=== PATIENT | male | born 1940 | race Caucasian/White ===

== ENCOUNTER 2024-08-28 20:08 | Emergency (ER) | payer MEDICARE, SELFPAY ==
--- NOTE | ~2024-08-28 | CT_ITS ---
EXAMINATION: CT ANGIOGRAM CHEST CLINICAL INFORMATION: Tachycardia. Elevated d-dimer. Near-syncope. COMPARISON: None available. TECHNIQUE: Multiple axial images were obtained through the chest after the administration of 65 mL of Omnipaque 350 intravenous contrast. Extensive vascular post-processing including two-dimensional and three-dimensional reformatted images were created and reviewed on an independent workstation. This CT examination was performed using dose optimization techniques as appropriate, variously including the following: *Automated exposure control *Adjustment of mA and/or kV according to patient size (this includes techniques or standardized protocols for targeted exams where dose is matched to indication/reason for exam; i.e. extremities or head) *Use of iterative reconstruction technique DLP: 448 mGy-cm FINDINGS: QUALITY OF STUDY/CONTRAST BOLUS: Satisfactory. PULMONARY ARTERIES: No pulmonary emboli. THORACIC AORTA: There is atherosclerotic plaque of the thoracic aorta. LUNG: The lungs are clear. PLEURA: Unremarkable. CORONARY ARTERY CALCIFICATION: Moderate. MEDIASTINUM: The heart is normal in size. No pericardial effusion. No hilar or mediastinal lymphadenopathy. No evidence of septal bowing or right heart strain. CHEST WALL/AXILLA: No axillary or internal mammary lymphadenopathy. OSSEOUS STRUCTURES: There is mild to moderate diffuse thoracic degenerative change. UPPER ABDOMEN: The liver is of diminished attenuation. No reflux of contrast into the hepatic veins to suggest elevated right heart pressures. CT/CT angio chest PE protocol IMPRESSION: No acute abnormality. No evidence of pulmonary embolism. Fleischner guidelines were followed. Electronically signed by: Aba Mckee MD 08/29/2024 02:13 AM EDT
[2024-08-28 20:13] VITALS: BP 145/65; PULSE 117; RESP 20; TEMP 36.8; O2SAT 96; BMI 32.9
--- NOTE | 2024-08-28 20:21 | ECG_ITS ---
Test Reason : SYNCOPY Blood Pressure : / mmHG Vent. Rate : 113 BPM Atrial Rate : 113 BPM P-R Int : 166 ms QRS Dur : 088 ms QT Int : 330 ms P-R-T Axes : 002 -01 010 degrees QTc Int : 453 ms Sinus tachycardia Low voltage QRS Nonspecific ST and T wave abnormality Abnormal ECG No previous ECGs available Referred By: Generic ED Physician Electronically Signed By:CIERRA SCHWARZ
--- NOTE | 2024-08-28 20:25 | PC.NURSE ---
POC = [id number]
[2024-08-28 20:27] LABS: Glucose, Whole Blood 258 mg/dL (60-115)
[2024-08-28 20:39] VITALS: BP 124/65; PULSE 114; RESP 30; O2SAT 95
--- NOTE | 2024-08-28 20:41 | PC.NURSE ---
Arrives with 20G to L[facility] per EMS. Flushes well. Good blood return.
--- NOTE | 2024-08-28 20:41 | PC.NURSE ---
Labs and Covid/flu/RSV swab sent.
--- NOTE | 2024-08-28 20:42 | PC.NURSE ---
Pt. is on surveillance monitor at this time.
[2024-08-28 20:43] LABS: MANUAL DIFF FLAG NO
[2024-08-28 20:47] LABS: Basophils Percent Auto 0.2 % (0-2); Hematocrit 37.5 % (42.0-52.0); Hemoglobin 13.7 g/dl (14.0-18.0); Imm Gran Abs Auto 0.04 X10*3/uL (0.00-0.03); Imm Gran Pct Auto 0.4 % (0.0-0.4); Lymphocytes Absolute Auto 0.9 X10*3/uL (1.2-4.9); Mean Corpuscular HGB Conc 36.5 g/dl (31.0-36.0); Mean Corpuscular Hemoglobin 33.9 pg (27.0-33.0); Mean Corpuscular Volume 92.8 fL (80.0-98.0); Mean Platelet Volume 9.2 fL (9.4-12.4); Monocytes Absolute Auto 0.5 X10*3/uL (0.1-1.2); Monocytes Percent Auto 4.9 % (2-11); Neutrophils Absolute Auto 9.5 x10*3/uL (2.0-8.3); Neutrophils Percent Auto 86.5 % (45-73); Platelet Count 116 X10*3/uL (160-400); Red Blood Count 4.04 X10*6/uL (4.60-5.80); Red Cell Distribution Width 12.8 % (11.0-16.0)
--- NOTE | 2024-08-28 20:48 | MHC.EDTECH ---
DAUGHTER GOLDIE MELO LEFT # FOR UPDATE -- [phone]. SHE ALSO LEFT GRAND DAUGHTERS NUMBER WHO IS LOCAL IF HE NEEDS ANYTHING -- ERIC [phone]
[2024-08-28 20:58] LABS: Anion Gap 16 (12-20); Blood Urea Nitrogen 20 mg/dL (9-16); Calcium 9.8 mg/dL (8.4-10.2); Carbon Dioxide 25 mmol/L (22-29); Chloride 102 mmol/L (96-108); Creatinine Clr Calc Pharmacy 44.5; Estimated Glomerular Filt Rate 52; Glucose Random 272 mg/dL (60-115); Potassium 3.9 mmol/L (3.3-5.1); Sodium 139 mmol/L (135-145)
[2024-08-28 21:06] LABS: Troponin-I High Sensitivity 8.9 ng/L (<3.5-35.0)
[2024-08-28 21:20] LABS: Influenza A PCR NEGATIVE (Negative); Influenza B PCR NEGATIVE (Negative); Resp Syncy Virus RNA Qual PCR NEGATIVE (Negative); SARS COV2 PCR INHOUSE NEGATIVE (Negative)
--- NOTE | 2024-08-28 21:41 | ED.GENADULT ---
HPI - General Adult General Chief complaint: Dizziness Stated complaint: slip and fall w/ no loc , sugar of 385 Time Seen by Provider: 08/28/24 21:25 Source: patient and EMS Mode of arrival: EMS Limitations: no limitations History of Present Illness ED Provider: Dr. Luz Maria Huntley HPI narrative: Patient comes to the emergency room complaining a mechanical incident where he did not fall, was able to slide out. According to the patient, today he was treated in closed, states that his under friends got tangled around his lower extremities. Patient states that he was able to slowly lower himself to the ground. Patient states that he did not hit his head did not lose consciousness, did not land hard on the floor at all. Patient states that over the last 3 days he has noticed that he has mean feeling a bit different, almost like the flu. Denies chest pain or shortness of breath. Patient states that after he lowers his to the ground, he was unable to get up. Patient's who lives with him has history of dementia and is not strong enough to help him up therefore the ambulance was called. Patient states that at this time he feels well. Patient states that he does not know if he is strong enough to get up and walk. Related Data Allergies Allergy/AdvReac Type Severity Reaction Status Date / Time No Known Allergies Allergy Verified 08/28/24 20:15 Review of Systems Review of Systems: Constitutional : No Weight loss, No Fever, No Chills, No Night Sweats, complaining of fatigue and generalized malaise ENT/Mouth : No Hearing loss, No Ear Pain, No Nasal Congestion, No Sinus Pain, No Hoarseness, No sore throat, No Rhinorrhea, No Swallowing Difficulty Eyes: No Eye Pain, No Swelling, No Redness, No Foreign Body, No Discharge, No Vision Changes Cardiovascular : No Chest Pain, No SOB, No Dyspnea on Exertion, No Orthopnea, No Edema, No Palpitations Respiratory : No Cough, No Sputum, No Wheezing, No Smoke Exposure, No Dyspnea Gastrointestinal : No Nausea, No Vomiting, No Diarrhea, No Constipation, No abdominal Pain, No Hematochezia, No Melena Genitourinary : no irregular bleeding, No Dysuria, No Urinary Frequency, No Hematuria, No Urinary Incontinence, No Urgency, No Flank Pain, No Urinary Flow Changes, No Hesitancy Musculoskeletal : No joint pain, No Myalgias, No Joint Swelling Skin : No Skin Lesions, No rash Neuro : No Weakness, No Numbness, No Paresthesias, No Loss of Consciousness, No Dizziness, No Headache Psych : No Anxiety/Panic, No Depression, No SI/HI/AH/VH, No Social Issues, Heme/Lymph: No Bruising, No Bleeding,No Lymphadenopathy Endocrine : No Polyuria, No Polydipsia, No Temperature Intolerance [facility] Past Medical History Medical History (Updated 08/29/24 @ 03:40 by Luz Maria Huntley MD) Lower extremity edema Hyperlipidemia STEMI (ST elevation myocardial infarction) Social History Social History Smoked in Last 30 Days: No Use of substances other than those prescribed or required for medical reasons: No Advance Directives: No Advance Directives Information Provided: No Do you have a plan to hurt others: No Plan Physical Exam ED Vital Signs: Vital Signs - 24 hr 08/28/24 20:13 08/28/24 20:39 08/28/24 22:01 Temperature 98.2 F Pulse Rate 117 H 114 H 107 H Respiratory Rate 20 30 H Blood Pressure 145/65 H 124/65 132/54 L Pulse Oximetry 96 95 Oxygen Delivery Method Room Air Room Air 08/28/24 22:01 08/28/24 22:01 08/28/24 23:54 Temperature 98.0 F Pulse Rate 119 H 131 H 115 H Respiratory Rate 17 Blood Pressure 126/61 130/57 L 130/70 Pulse Oximetry 95 Oxygen Delivery Method Room Air BMI result Body Mass Index 32.9 Const Other: Appearance: Alert. Oriented X3. No acute distress. Eyes: Pupils equal, round and reactive to light. ENT: Pharynx normal. Neck: Normal inspection. Neck supple. No lymph nodes noted. No crepitus CVS: Normal heart rate and rhythm. Pulses normal. Normal S1 and S2 Respiratory: No respiratory distress. Breath sounds normal. No Wheezing. No rales Abdomen: Soft and nontender. No rigidity. No distention. Skin: Skin warm and dry. Normal skin color. Normal skin turgor. Extremities: Edema is significantly more swollen than the right, warm and tender to touch. Neuro: Oriented X 3. No motor deficit. No sensory deficit. Moving all extremities. No slurred speech. CN 2 through 12 grossly intact Psych: calm, cooperative, normal affect Course Course Course Narrative: All of patient's labs and imaging pending -I discussed the patient's right lower extremity on physical exam. Patient states that for months he has had lower extremity redness pain and edema. 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 Patient states that the appearance of his leg today is actually better then some days ago. Patient is not taking any antibiotics. Patient states that he had an ultrasound done a [facility] which showed no DVT Medical Decision Making Medical Decision Making [facility] Narrative: My interpretation of labs: No alarming abnormality in patient's hematology, platelets are a bit low, 116. No significant electrolytes, glucose 272. Troponin normal. Serology negative for influenza RSV and COVID. -my interpretation of EKG: Sinus tachycardia, heart rate 113, no ST segment depression or elevation, no T-wave inversion, QTC 647 -patient's QTC seems inaccurately elevated. We will repeat EKG -my interpretation of EKG 2.: Sinus rhythm, heart rate 109, no ST segment depression or elevation, no T-wave inversion, QTC 401 -orthostatic vitals negative -patient's heart rate between 113 in 130 at rest. Patient's D-dimer pending. Discussed with the patient that if positive we will do a CTA to rule out PE, patient agrees with plan -CT scan negative for PE -urinalysis negative for UTI -patient was able to ambulate with a any difficulty. Denies feeling dizzy or lightheaded, no room spinning. Patient states that he feels well enough to go home Differential Diagnosis Differential Diagnoses: The differential diagnosis associated with the presentation includes (Mechanical fall, viral syndrome, UTI, decompensation) Admission/Observation Consideration of admission/observation: Escalation of care including admission/observation considered (Medical history, labs and symptoms, observation was considered.) Lab Data [facility] Lab Attestation statement: I reviewed the patient's lab results. 08/28/24 20:36 08/28/24 20:36 Labs: Lab Results 08/28/24 08/28/24 08/28/24 Range/Units 20:24 20:36 23:01 WBC 11.0 H (4.8-10.8) X10*3/uL RBC 4.04 L (4.60-5.80) X10*6/uL Hgb 13.7 L (14.0-18.0) g/dl Hct 37.5 L (42.0-52.0) % MCV 92.8 (80.0-98.0) fL MCH 33.9 H (27.0-33.0) pg MCHC 36.5 H (31.0-36.0) g/dl RDW 12.8 (11.0-16.0) % Plt Count 116 L (160-400) X10*3/uL MPV 9.2 L (9.4-12.4) fL Immature Gran % (Auto) 0.4 (0.0-0.4) % Neut % (Auto) 86.5 H (45-73) % Lymph % (Auto) 8.0 L (20-40) % Graves % (Auto) 4.9 (2-11) % Eos % (Auto) 0.0 (0-4) % Baso % (Auto) 0.2 (0-2) % Lymph # (Auto) 0.9 L (1.2-4.9) X10*3/uL Graves # (Auto) 0.5 (0.1-1.2) X10*3/uL Eos # (Auto) 0.0 (0.0-0.4) X10*3/uL Baso # (Auto) 0.0 (0.0-0.2) X10*3/uL Abs Immat Gran (auto) 0.04 H (0.00-0.03) X10*3/uL Absolute Neuts (auto) 9.5 H (2.0-8.3) x10*3/uL Absolute Nucleated RBC 0.000 (0.0-0.012) X10*3/uL Nucleated RBC % (auto) 0.0 (0.0-0.2) /100WBC PT 14.2 H (10.9-12.4) SEC INR 1.2 H (0.9-1.1) D-Dimer High Sensitivty 467 NG/ML Sodium 139 (135-145) mmol/L Potassium 3.9 (3.3-5.1) mmol/L Chloride 102 (96-108) mmol/L Carbon Dioxide 25 (22-29) mmol/L Anion Gap 16 (12-20) BUN 20 H (9-16) mg/dL Creatinine 1.31 (0.5-1.4) mg/dL Estim Creat Clear Calc 44.5 Estimated GFR 52 POC Glucose 258 H (60-115) mg/dL Random Glucose 272 H (60-115) mg/dL Calcium 9.8 (8.4-10.2) mg/dL Troponin I High Sens 8.9 (<3.5-35.0) ng/L Urine Color Urine Appearance Urine pH (5.0-9.0) Ur Specific Maria Stein (1.005-1.025) Urine Protein (Neg-Trace) mg/dL Urine Glucose (UA) (Negative) mg/dL Urine Ketones (Negative) mg/dL Urine Blood (Negative) Urine Nitrite (Negative) Ur Leukocyte Esterase (Negative) Urine RBC (0-2) /HPF Urine WBC (0-5) /HPF Ur Squamous Epith Cells (0-2) /HPF Urine Bacteria (None Seen) Hyaline Casts (0-2) /LPF Urine Opiates Screen (Not Detect) Ur Buprenorphine Scrn (Not Detect) ng/mL Ur Oxycodone Screen (Not Detect) ng/mL Urine Methadone Screen (Not Detect) ng/mL Urine Fentanyl Screen (Not Detect) Ur Barbiturates Screen (Not Detect) Ur Phencyclidine Scrn (Not Detect) Ur Amphetamines Screen (Not Detect) U Benzodiazepines Scrn (Not Detect) Urine Cocaine Screen (Not Detect) U Marijuana (THC) Screen (Not Detect) Influenza Type A (PCR) NEGATIVE (Negative) Influenza Type B (PCR) NEGATIVE (Negative) RSV RNA Qual (PCR) NEGATIVE (Negative) SARS-CoV-2 RNA (RT-PCR) NEGATIVE (Negative) 08/29/24 Range/Units 02:59 WBC (4.8-10.8) X10*3/uL RBC (4.60-5.80) X10*6/uL Hgb (14.0-18.0) g/dl Hct (42.0-52.0) % MCV (80.0-98.0) fL MCH (27.0-33.0) pg MCHC (31.0-36.0) g/dl RDW (11.0-16.0) % Plt Count (160-400) X10*3/uL MPV (9.4-12.4) fL Immature Gran % (Auto) (0.0-0.4) % Neut % (Auto) (45-73) % Lymph % (Auto) (20-40) % Graves % (Auto) (2-11) % Eos % (Auto) (0-4) % Baso % (Auto) (0-2) % Lymph # (Auto) (1.2-4.9) X10*3/uL Graves # (Auto) (0.1-1.2) X10*3/uL Eos # (Auto) (0.0-0.4) X10*3/uL Baso # (Auto) (0.0-0.2) X10*3/uL Abs Immat Gran (auto) (0.00-0.03) X10*3/uL Absolute Neuts (auto) (2.0-8.3) x10*3/uL Absolute Nucleated RBC (0.0-0.012) X10*3/uL Nucleated RBC % (auto) (0.0-0.2) /100WBC PT (10.9-12.4) SEC INR (0.9-1.1) D-Dimer High Sensitivty NG/ML Sodium (135-145) mmol/L Potassium (3.3-5.1) mmol/L Chloride (96-108) mmol/L Carbon Dioxide (22-29) mmol/L Anion Gap (12-20) BUN (9-16) mg/dL Creatinine (0.5-1.4) mg/dL Estim Creat Clear Calc Estimated GFR POC Glucose (60-115) mg/dL Random Glucose (60-115) mg/dL Calcium (8.4-10.2) mg/dL Troponin I High Sens (<3.5-35.0) ng/L Urine Color Yellow Urine Appearance Clear Urine pH 8.5 (5.0-9.0) Ur Specific Maria Stein >= 1.030 H (1.005-1.025) Urine Protein 100 (2+) H (Neg-Trace) mg/dL Urine Glucose (UA) 500 H (Negative) mg/dL Urine Ketones 15 (Negative) mg/dL Urine Blood Negative (Negative) Urine Nitrite Negative (Negative) Ur Leukocyte Esterase Negative (Negative) Urine RBC 0-2 (0-2) /HPF Urine WBC 0-5 (0-5) /HPF Ur Squamous Epith Cells 0-2 (0-2) /HPF Urine Bacteria None Seen (None Seen) Hyaline Casts 0-2 (0-2) /LPF Urine Opiates Screen Not Detected (Not Detect) Ur Buprenorphine Scrn Not Detected (Not Detect) ng/mL Ur Oxycodone Screen Not Detected (Not Detect) ng/mL Urine Methadone Screen Not Detected (Not Detect) ng/mL Urine Fentanyl Screen Not Detected (Not Detect) Ur Barbiturates Screen Not Detected (Not Detect) Ur Phencyclidine Scrn Not Detected (Not Detect) Ur Amphetamines Screen Not Detected (Not Detect) U Benzodiazepines Scrn Not Detected (Not Detect) Urine Cocaine Screen Not Detected (Not Detect) U Marijuana (THC) Screen Not Detected (Not Detect) Influenza Type A (PCR) (Negative) Influenza Type B (PCR) (Negative) RSV RNA Qual (PCR) (Negative) SARS-CoV-2 RNA (RT-PCR) (Negative) Independent Interpretation I performed an independent interpretation of an: CT Scan Radiology Impression Discussion of test interpretation with radiology: I have reviewed the radiologist's reading. Radiologist Impression: QUALITY OF STUDY/CONTRAST BOLUS: Satisfactory. PULMONARY ARTERIES: No pulmonary emboli. THORACIC AORTA: There is atherosclerotic plaque of the thoracic aorta. LUNG: The lungs are clear. PLEURA: Unremarkable. CORONARY ARTERY CALCIFICATION: Moderate. MEDIASTINUM: The heart is normal in size. No pericardial effusion. No hilar or mediastinal lymphadenopathy. No evidence of septal bowing or right heart strain. CHEST WALL/AXILLA: No axillary or internal mammary lymphadenopathy. OSSEOUS STRUCTURES: There is mild to moderate diffuse thoracic degenerative change. UPPER ABDOMEN: The liver is of diminished attenuation. No reflux of contrast into the hepatic veins to suggest elevated right heart pressures. CT/CT angio chest PE protocol IMPRESSION: No acute abnormality. No evidence of pulmonary embolism. Critical Care Time Critical Care Time Critical Care Time: Yes Total Critical Care Time: 45 Attestation: I have personally provided critical care time. Time includes review of lab data, radiology results, discussion with consultants, and monitoring for potential decompensation. Intervention performed as documented. Discharge Plan Discharge Clinical Impression: Dizziness, Acute viral syndrome Patient Disposition: Home, Self-Care Instructions: Viral Syndrome (ED), Dizziness (ED) Additional Instructions: Please follow-up with your primary care physician tomorrow. If you have any worsening or new symptoms, please return to the emergency room or call 911 Print Language: Turkmen
[2024-08-28 22:01] VITALS: BP 126/61; BP 130/57; BP 132/54; PULSE 107; PULSE 119; PULSE 131
[2024-08-28 23:14] LABS: INTERNATIONAL NORM RATIO 1.2 (0.9-1.1); Prothrombin Time 14.2 SEC (10.9-12.4)
[2024-08-28 23:29] LABS: D Dimer High Sensitivity 467 NG/ML
[2024-08-28 23:54] VITALS: BP 130/70; PULSE 115; RESP 17; TEMP 36.7; O2SAT 95
[2024-08-29 03:08] LABS: Appearance Urine Clear; Color Urine Yellow; Glucose Urine UA 500 mg/dL (Negative); Leukocyte Esterase Urine Negative (Negative); Nitrite Urine Negative (Negative); PH 8.5 (5.0-9.0); Specific Gravity - Urine >= 1.030 (1.005-1.025); UMIC TRIGGER UACC YES; Urine Blood Negative (Negative); Urine Ketones 15 mg/dL (Negative); Urine Protein 100 (2+) mg/dL (Neg-Trace)
--- NOTE | 2024-08-29 03:19 | PC.NURSE ---
Addendum entered by Bertha Ulrich Aarti 08/29/24 06:50: pt denies dizziness. notified provider Original Note: trial ambulation conducted
[2024-08-29 03:21] LABS: Amphetamine Screen Urine Not Detected (Not Detect); Barbiturates, Urine Not Detected (Not Detect); Benzodiazepines Screen Urine Not Detected (Not Detect); Buprenorphine Scr Not Detected (Not Detect); Cannabinoid Screen Urine Not Detected (Not Detect); Cocaine Screen Urine Not Detected (Not Detect); Fentanyl, urine Not Detected (Not Detect); Methadone Screen, Urine Not Detected (Not Detect); Opiate Screen Urine Not Detected (Not Detect); Oxycodone Screen Urine Not Detected (Not Detect); Phencyclidine Screen Urine Not Detected (Not Detect)
--- NOTE | 2024-08-29 03:21 | ECG_ITS ---
Test Reason : QTC CHECK Blood Pressure : / mmHG Vent. Rate : 109 BPM Atrial Rate : 109 BPM P-R Int : 178 ms QRS Dur : 094 ms QT Int : 298 ms P-R-T Axes : 025 017 000 degrees QTc Int : 401 ms Sinus tachycardia Nonspecific T wave abnormality Abnormal ECG When compared with ECG of 28-AUG-2024 20:30, Nonspecific T wave abnormality now evident in Lateral leads Referred By: Luz Maria Huntley Electronically Signed By:CIERRA SCHWARZ
[2024-08-29 03:26] LABS: Bacteria Urine None Seen (None Seen); Hyaline Casts Urine 0-2 /LPF (0-2); Squamous Epithelial Cell Urine 0-2 /HPF (0-2); WBC Urine 0-5 /HPF (0-5)
[2024-08-29 03:27] LABS: RBC Urine 0-2 /HPF (0-2)
[2024-08-29 04:00] VITALS: BP 135/74; PULSE 108; RESP 16
[2024-08-29 06:35] VITALS: PULSE 103; RESP 15; O2SAT 97
[2024-08-29 07:06] VITALS: BP 128/59; PULSE 101; RESP 16; TEMP 36.6; O2SAT 96
[2024-08-29 07:50] VITALS: BP 128/59; PULSE 101; RESP 16; TEMP 36.6; O2SAT 96
== END 2024-08-29 08:06 | disposition home or self-care (01) ==
PROVIDERS: Emergency Provider Emergency Medicine; PCP Internal Medicine
DX: B34.9 Viral infection, unspecified (principal); R42 Dizziness and giddiness; R00.0 Tachycardia, unspecified; Z51.81 Encounter for therapeutic drug level monitoring; Z03.818 Encounter for observation for suspected exposure to other biological agents ruled out; Z79.899 Other long term (current) drug therapy
CPT/HCPCS: 0241U; 36415; 71275; 80048; 80307; 81001; 82947; 84484; 85025; 85379; 85610; 93005; 99284; 99285

== ENCOUNTER → 2024-08-28 20:21 | Outpatient (BNV) | payer MEDICARE, SELFPAY | PROVIDERS: Emergency Provider Emergency Medicine; PCP Internal Medicine; Visit Provider Internal Medicine | DX: R00.0 Tachycardia, unspecified (principal); R94.31 Abnormal electrocardiogram [ECG] [EKG] | CPT/HCPCS: 93010 ==

== ENCOUNTER → 2024-08-29 03:21 | Outpatient (BNV) | payer MEDICARE, SELFPAY | PROVIDERS: Emergency Provider Emergency Medicine; PCP Internal Medicine; Visit Provider Internal Medicine | DX: R00.0 Tachycardia, unspecified (principal); R94.31 Abnormal electrocardiogram [ECG] [EKG] | CPT/HCPCS: 93010 ==

== ENCOUNTER 2024-09-09 15:53 | Inpatient (IN) | payer MEDICARE, SELFPAY ==
--- NOTE | ~2024-09-09 | CT_ITS ---
EXAMINATION: CT ABDOMEN AND PELVIS WITH AND WITHOUT CONTRAST: CT GI BLEEDING STUDY CLINICAL INFORMATION: GI bleed. COMPARISON: No pertinent prior studies are available for comparison. TECHNIQUE: Multidetector volumetric imaging was performed from the lung bases to the pubic symphysis before and after the administration of: Intravenous contrast: 80 mL Omnipaque 350 No contrast reaction reported MIP coronal, sagittal and coronal reformatted images were obtained on the technologist workstation. 2 sets of post contrast imaging were performed, one during the arterial phase and another after a 2 minute delay to look for extravasation. This CT examination was performed using dose optimization techniques as appropriate, variously including the following: *Automated exposure control *Adjustment of mA and/or kV according to patient size (this includes techniques or standardized protocols for targeted exams where dose is matched to indication/reason for exam; i.e. extremities or head) *Use of iterative reconstruction technique Total exam dose-length product 1695 mGy-cm FINDINGS: STOMACH: No abnormal wall thickening or mass. No intraluminal contrast accumulation to suggest hemorrhage. SMALL BOWEL: No abnormal wall thickening or dilation. No intraluminal contrast accumulation to suggest hemorrhage. COLON: On the noncontrast imaging, there is some high density seen in the low rectum as well as multiple predominantly sigmoid diverticula which contain high density. This somewhat limits evaluation of diverticular bleeding but there is no gross evidence to suggest the presence of acute diverticular hemorrhage. No intraluminal contrast accumulation to suggest hemorrhage. No colonic wall thickening or pericolonic inflammatory changes. Although the appendix is not definitely seen, there are no right lower quadrant inflammatory changes to suggest acute appendicitis. LUNG BASES: No nodules, mass, or focal consolidation. PLEURA: No pleural effusion. LIVER, GALLBLADDER, AND BILIARY TREE: The liver is normal in size, shape, and attenuation. No focal hepatic lesion or biliary ductal dilatation is present. The gallbladder is contracted and filled with gallstones without obvious pericholecystic inflammatory changes. PANCREAS: Normal; no mass or surrounding fluid. SPLEEN: Normal size. No focal lesion. ADRENAL GLANDS: Normal; no mass. KIDNEYS AND URETERS: The kidneys are normal in size, shape, and attenuation. No hydronephrosis, hydroureter, or calculi. ABDOMINAL WALL: No hernia seen. LYMPHOVASCULAR STRUCTURES: No lymphadenopathy. The aorta is normal in caliber. BLADDER: No focal mass or wall thickening seen. No bladder calculi. PELVIC VISCERA: Unremarkable. OSSEOUS STRUCTURES: No acute or suspicious osseous abnormality. CT/CT gi bleed abd pel wo/w IVcon IMPRESSION: 1. No evidence of active GI bleeding. 2. Colonic diverticulosis without diverticulitis. 3. Cholelithiasis without cholecystitis. Electronically signed by: Gary Vang MD 09/09/2024 09:34 PM EDT
--- NOTE | ~2024-09-09 | XR_ITS ---
EXAMINATION: XR CHEST CLINICAL INFORMATION: Shortness of breath COMPARISON: CT PE STUDY 08/29/2024 TECHNIQUE: 2 views of the chest were obtained. FINDINGS: No significant abnormality is noted involving the heart, lungs, mediastinum, bony thorax or soft tissues. Marked bilateral degenerative changes are present in the shoulders. XR/XR chest 2V IMPRESSION: Unremarkable examination. Electronically signed by: Gary Vang MD 09/09/2024 05:26 PM EDT RP
[2024-09-09 15:57] VITALS: BP 140/71; PULSE 107; RESP 22; TEMP 36.4; O2SAT 100; BMI 31.6
--- NOTE | 2024-09-09 15:57 | ED_ITS ---
HPI - General Adult General Chief complaint: Dyspnea Stated complaint: Sob,dizziness Time Seen by Provider: 09/09/24 17:34 History of Present Illness HPI narrative: Patient is an 84 year old male with a history of DM and HLD who presents with 2 days of SOB and dizziness after he tried to lift his off of the floor. He states that this is worse on exertion and has had multiple episodes of near syncope, however denies syncopal episodes. Overall, he has had general weakness for many weeks. He reports 2 days of black, tarry stools as well. His Lasix was increased about 3 weeks ago. He denies chest pain, fevers, palpitations, and rash. Related Data Allergies Allergy/AdvReac Type Severity Reaction Status Date / Time No Known Allergies Allergy Verified 09/09/24 15:58 Review of Systems 2 Constitutional: Constitutional: Denies fever(s) and Reports weakness ENT: Reports dizziness Cardiovascular: Cardiovascular: Denies Abdominal Distension, Denies chest pain, Denies Epigastric Pain, Denies syncope, Denies palpitations and Reports dyspnea Respiratory: Respiratory: Denies cough and Reports dyspnea Gastrointestinal: Gastrointestinal: Denies abdominal pain, Reports melena, Denies hematochezia, Denies constipation, Denies diarrhea and Denies nausea Genitourinary: Genitourinary: Denies hematuria, Denies dysuria and Denies urinary urgency Neurologic: Reports dizziness, Denies syncope and Reports weakness Endocrine: Endocrine: Denies palpitations [facility] Past Medical History Medical History (Updated 09/09/24 @ 21:57 by JOSSUE Moscoso) Lower extremity edema Hyperlipidemia STEMI (ST elevation myocardial infarction) Social History Social History Smoked in Last 30 Days: No Advance Directives: No Advance Directives Information Provided: Yes Physical Exam ED Vital Signs: Vital Signs - 24 hr 09/09/24 15:57 09/09/24 16:44 09/09/24 20:06 Temperature 97.6 F 97.8 F 97.7 F Pulse Rate 107 H 105 H 103 H Respiratory Rate 22 H 22 H 20 Blood Pressure 140/71 H 135/95 H 102/55 L Pulse Oximetry 100 100 98 Oxygen Delivery Method Room Air Room Air Room Air BMI result Body Mass Index 31.6 Const Other: Calm cooperative General: cooperative, healthy appearing, comfortable and no acute distress Orientation/consciousness: patient oriented x3 Limitations: No altered mental status Neck Neck: Yes no meningeal signs Resp Effort & Inspection: normal respiratory effort, able to speak in complete sentences, no cough and no respiratory distress Cardio Jugular venous distension: no JVD Rate: tachycardic Rhythm: regular rhythm Heart sounds: S1 normal heart sound present and S2 normal heart sound present GI Other: Abdomen is soft, nondistended, nontender, melena noted on exam Inspection: Yes normal to inspection, No abdominal wall ecchymosis, No distended and No visible herniation Male General Exam: Yes normal external exam and No tenderness Skin Other: warm and dry General skin exam: dry skin (right foot/lower calf ) and erythema (right foot/lower calf ) Rashes: rashes noted (right foot/lower calf ) Neuro General: patient oriented x3, no meningeal signs, no focal motor deficits and CN's II-XI intact bilaterally Cranial nerves: Yes CN's II-XII intact bilaterally and Yes Facial sensation intact/muscles of mastication intact Cognition (Neuro): normal cognition Extrem General: Yes full ROM and Yes normal gait Right lower extremity: edema and foot Details: edema; no cyanosis Psych Other: calm and cooperative Course Course Course Narrative: This is a Rapid Medical Examination (RME) performed by Abigail Haley PA-C in triage. Full HPI, ROS, assessment and treatment plan per primary provider in the Main ED. here for eval of shortness of breath, intermittent dizziness x1 weeks and two episodes of melena today. did not take his lasix today. here on 08/28/24 - dx with viral syndrome. has since follow up with PCP + mouth breathing (patient states this is his baseline), no tripoding. lungs clear. tachycardic. afebrile. Plan: labs, viral swabs, ekg, CXR, OBS. will defer further imaging to primary provider Medications Administered Discontinued Medications Generic Name Dose Route Start Last Admin Trade Name Freq PRN Reason Stop Dose Admin Magnesium Sulfate 2 gm in 50 mls @ 25 mls/hr 09/09/24 18:03 09/09/24 20:44 Magnesium Sulfate/H2o IV 09/09/24 20:02 Infused ONCE ONE Infusion Sodium Chloride 500 mls @ 500 mls/hr 09/09/24 18:14 09/09/24 19:39 Ns IV 09/09/24 19:13 Infused .Q1H ONE Infusion Iohexol 80 ml 09/09/24 20:00 09/09/24 20:01 Iohexol 350 Mg/Ml 100 Ml Infus..Btl IV 09/09/24 20:01 80 ml ONCE ONE Administration Pantoprazole Sodium 40 mg 09/09/24 18:29 09/09/24 18:54 Pantoprazole Sodium 40 Mg/10 Ml Vial IVPUSH 09/09/24 18:30 40 mg ONCE ONE Administration Medical Decision Making Medical Decision Making [facility] Narrative: I Margarita Dailey PA-C have personally assessed to manage the patient, AR Alfredo observed and helped to formulate the documentation Patient is an 84 year old male with a history of DM and HLD who presents with 2 days of SOB and dizziness after he tried to lift his off of the floor. He states that this is worse on exertion and has had multiple episodes of near syncope, however denies syncopal episodes. Overall, he has had general weakness for many weeks. He reports 2 days of black, tarry stools as well. His Lasix was increased about 3 weeks ago. He denies chest pain, fevers, palpitations, and rash. Patient has a history of DM and HLD. Differentials: ACS, HF, DVT/PE, electrolyte imbalance, dehydration, constipation, UGIB, anemia, sepsis, cellulitis, arrhythmia, COPD Plan: I believe UGIB could be the most likely diagnosis given the complaints of melena, SOB, and dizziness. Given that the patient has risk factors for ACS and some symptoms consistent with it after a physical event, I believe that this could be a reasonable concern. Will do EKG to rule out. Due to the edema and redness in his right leg on exam, I am concerned for cellulitis or DVT. Patient states his leg has been like this for months, however he has not found any alleviating factors for it, therefore I will check CBC to further rule out. HF was considered, given the HECTOR and SOB, however HECTOR is unilateral, patient denies orthopnea, and patient states he has regular check ups with his [employer] [place] regarding other issues. His symptoms could also be due to an underlying arrhythmia, however nothing abnormal was heard on PE. Will check EKG to rule out. Also considered sepsis, anemia, electrolyte imbalance, and dehydration, however patient has no recent illnesses. Will check CBC and CMP to further assess. PE is possible, given the SOB and tachycardia on exam, however patient is not hypoxic and this would not explain the new onset melena. COPD was considered, however this would also not explain the melena, patient denies productive cough, and does not have any other objective symptoms. Per Margarita Dailey PA-C Patient is here with multiple complaints. Patient states 2 weeks ago, he attempted to lift his from the ground after she had fallen, he subsequently strained his back. He has had ongoing back pain. He also notes that over the past few weeks he has had progressive weakness, and feels short of breath with minimal activity. In addition, patient has been having black tarry stools, yesterday he had a large volume bowel movement of melena, today he had 2 episodes. Denies abdominal pain, nausea, vomiting, fever. I Think his shortness of breath and weakness are secondary to his down trending anemia. In chart review, his H&H have been down trending. We will give Protonix 40 mg IV, and 500 mL of IV fluid I have independently reviewed the following tests: Labs: No leukocytosis, H&H are 9.7 and 26.9 respectively, no electrolyte abnormality other than magnesium was subtly low at 1.5, we will give 2 g of magnesium, creatinine at baseline Chest x-ray: XR/XR chest 2V IMPRESSION: Unremarkable examination. Electronically signed by: Gary Vang MD 09/09/2024 05:[address] abdomen and pelvis: CT/CT gi bleed abd pel wo/w IVcon IMPRESSION: 1. No evidence of active GI bleeding. 2. Colonic diverticulosis without diverticulitis. 3. Cholelithiasis without cholecystitis. Lab Data 09/09/24 16:15 09/09/24 16:15 Labs: Lab Results 09/09/24 09/09/24 Range/Units 16:15 21:02 WBC 8.0 (4.8-10.8) X10*3/uL RBC 2.88 L D (4.60-5.80) X10*6/uL Hgb 9.7 L D (14.0-18.0) g/dl Hct 26.9 L D (42.0-52.0) % MCV 93.4 (80.0-98.0) fL MCH 33.7 H (27.0-33.0) pg MCHC 36.1 H (31.0-36.0) g/dl RDW 12.7 (11.0-16.0) % Plt Count 223 D (160-400) X10*3/uL MPV 9.2 L (9.4-12.4) fL Immature Gran % (Auto) 0.1 (0.0-0.4) % Neut % (Auto) 66.4 (45-73) % Lymph % (Auto) 26.1 (20-40) % [place] % (Auto) 6.0 (2-11) % Eos % (Auto) 0.7 (0-4) % Baso % (Auto) 0.7 (0-2) % Lymph # (Auto) 2.1 (1.2-4.9) X10*3/uL [place] # (Auto) 0.5 (0.1-1.2) X10*3/uL Eos # (Auto) 0.1 (0.0-0.4) X10*3/uL Baso # (Auto) 0.1 (0.0-0.2) X10*3/uL Abs Immat Gran (auto) 0.01 (0.00-0.03) X10*3/uL Absolute Neuts (auto) 5.3 (2.0-8.3) x10*3/uL Absolute Nucleated RBC 0.000 (0.0-0.012) X10*3/uL Nucleated RBC % (auto) 0.0 (0.0-0.2) /100WBC PT 13.3 H (10.9-12.4) SEC INR 1.1 (0.9-1.1) Sodium 137 (135-145) mmol/L Potassium 3.8 (3.3-5.1) mmol/L Chloride 102 (96-108) mmol/L Carbon Dioxide 22 (22-29) mmol/L Anion Gap 17 (12-20) BUN 35 H (9-16) mg/dL Creatinine 1.21 (0.5-1.4) mg/dL Estim Creat Clear Calc 47.2 Estimated GFR 57 Random Glucose 245 H (60-115) mg/dL Calcium 9.3 (8.4-10.2) mg/dL Magnesium 1.5 L (1.6-2.6) mg/dL Total Bilirubin 0.5 (0.0-1.0) mg/dL AST 21 (5-37) U/L ALT 14 (0-40) U/L Alkaline Phosphatase 44 (39-117) U/L Troponin I High Sens < 2.7 D (<3.5-35.0) ng/L B-Natriuretic Peptide 12 (<100) pg/mL Total Protein 6.5 (6.5-8.0) g/dL Albumin 3.8 (3.5-5.0) g/dL Lipase 30 (8-78) U/L Urine Color Yellow Urine Appearance Clear Urine pH 5.5 (5.0-9.0) Ur Specific [place] 1.025 (1.005-1.025) Urine Protein Negative (Neg-Trace) mg/dL Urine Glucose (UA) Negative (Negative) mg/dL Urine Ketones Trace (Negative) mg/dL Urine Blood Negative (Negative) Urine Nitrite Negative (Negative) Ur Leukocyte Esterase Negative (Negative) Influenza Type A (PCR) NEGATIVE (Negative) Influenza Type B (PCR) NEGATIVE (Negative) RSV RNA Qual (PCR) NEGATIVE (Negative) SARS-CoV-2 RNA (RT-PCR) NEGATIVE (Negative) Discharge Plan Discharge Clinical Impression: GI bleed Patient Disposition: Admitted As Inpatient Print Language: Romansh
--- NOTE | 2024-09-09 16:01 | ECG_ITS ---
Test Reason : SOB Blood Pressure : / mmHG Vent. Rate : 105 BPM Atrial Rate : 105 BPM P-R Int : 162 ms QRS Dur : 088 ms QT Int : 346 ms P-R-T Axes : 019 -01 008 degrees QTc Int : 457 ms Sinus tachycardia Low voltage QRS Borderline ECG When compared with ECG of 29-AUG-2024 03:21, Nonspecific T wave abnormality no longer evident in Anterolateral leads Referred By: Radha Haley Electronically Signed By:Juan Dupree
[2024-09-09 16:23] LABS: MANUAL DIFF FLAG NO
[2024-09-09 16:36] LABS: Basophils Absolute Auto 0.1 X10*3/uL (0.0-0.2); Basophils Percent Auto 0.7 % (0-2); Eosinophils Absolute Auto 0.1 X10*3/uL (0.0-0.4); Eosinophils Percent Auto 0.7 % (0-4); Hematocrit 26.9 % (42.0-52.0); Hemoglobin 9.7 g/dl (14.0-18.0); Imm Gran Abs Auto 0.01 X10*3/uL (0.00-0.03); Imm Gran Pct Auto 0.1 % (0.0-0.4); Lymphocytes Absolute Auto 2.1 X10*3/uL (1.2-4.9); Lymphocytes Percent Auto 26.1 % (20-40); Mean Corpuscular HGB Conc 36.1 g/dl (31.0-36.0); Mean Corpuscular Hemoglobin 33.7 pg (27.0-33.0); Mean Corpuscular Volume 93.4 fL (80.0-98.0); Mean Platelet Volume 9.2 fL (9.4-12.4); Monocytes Absolute Auto 0.5 X10*3/uL (0.1-1.2); Neutrophils Absolute Auto 5.3 x10*3/uL (2.0-8.3); Neutrophils Percent Auto 66.4 % (45-73); Platelet Count 223 X10*3/uL (160-400); Red Blood Count 2.88 X10*6/uL (4.60-5.80); Red Cell Distribution Width 12.7 % (11.0-16.0)
--- NOTE | 2024-09-09 16:43 | PC.NURSE ---
steady on feet. axox3. skin PWD. states he suspects lifing from floor corolates to black stools. No SOB noted. unlabored resp in bed. swollen red warm LLE to knees. plus 3 pitting edema BLE. LS CTA
[2024-09-09 16:44] VITALS: BP 135/95; PULSE 105; RESP 22; TEMP 36.6; O2SAT 100
[2024-09-09 16:46] LABS: INTERNATIONAL NORM RATIO 1.1 (0.9-1.1); Prothrombin Time 13.3 SEC (10.9-12.4)
[2024-09-09 16:50] LABS: Alanine Aminotransferase 14 U/L (0-40); Albumin Level 3.8 g/dL (3.5-5.0); Alkaline Phosphatase 44 U/L (39-117); Anion Gap 17 (12-20); Aspartate Amino Transferase 21 U/L (5-37); Bilirubin Total 0.5 mg/dL (0.0-1.0); Blood Urea Nitrogen 35 mg/dL (9-16); Calcium 9.3 mg/dL (8.4-10.2); Carbon Dioxide 22 mmol/L (22-29); Chloride 102 mmol/L (96-108); Creatinine Clr Calc Pharmacy 47.2; Estimated Glomerular Filt Rate 57; Glucose Random 245 mg/dL (60-115); Lipase 30 U/L (8-78); Magnesium 1.5 mg/dL (1.6-2.6); Potassium 3.8 mmol/L (3.3-5.1); Sodium 137 mmol/L (135-145); Total Protein 6.5 g/dL (6.5-8.0)
[2024-09-09 16:55] LABS: B Type Natriuretic Peptide 12 pg/mL (<100)
[2024-09-09 17:01] LABS: Troponin-I High Sensitivity < 2.7 ng/L (<3.5-35.0)
[2024-09-09 17:12] LABS: Influenza A PCR NEGATIVE (Negative); Influenza B PCR NEGATIVE (Negative); Resp Syncy Virus RNA Qual PCR NEGATIVE (Negative); SARS COV2 PCR INHOUSE NEGATIVE (Negative)
[2024-09-09] MEDS: 0.9 % Sodium Chloride 500 ML IV (18:46)
[2024-09-09] MEDS: Magnesium Sulfate/H2O 2 GM/50 ML PIGGYBACK IV (18:54)
[2024-09-09] MEDS: Pantoprazole Sodium 40 MG/10 ML VIAL IVPUSH (18:54)
--- NOTE | 2024-09-09 18:57 | PC.NURSE ---
IV established, medicated per the mar. awaiting ct scan
[2024-09-09] MEDS: iohexoL 350 MG/ML 100 ML INFUS..BTL 80 ML IV (20:01)
[2024-09-09 20:06] VITALS: BP 102/55; PULSE 103; RESP 20; TEMP 36.5; O2SAT 98
[2024-09-09 21:12] LABS: Appearance Urine Clear; Color Urine Yellow; Glucose Urine UA Negative (Negative); Leukocyte Esterase Urine Negative (Negative); Nitrite Urine Negative (Negative); PH 5.5 (5.0-9.0); Specific Gravity - Urine 1.025 (1.005-1.025); Urine Blood Negative (Negative); Urine Ketones Trace mg/dL (Negative); Urine Protein Negative (Neg-Trace)
--- NOTE | 2024-09-09 22:11 | PM.IMHP ---
History of Present Illness Date of Service: 09/09/24 Chief Complaint: Dark stool This is a 84-year-old male with pertinent history of hypertension, lower extremity leg edema, lih-kjdmden-slcrtqawq diabetes mellitus, mixed hyperlipidemia, coronary artery disease who presents to the emergency department for evaluation of dark stools. Patient states his symptoms started 2 days prior to presentation. He has been having multiple episodes of black stools. Denies abdominal pain, fever or chills. No nausea or vomiting. No history of similar complaints in the past. Has not ever had a colonoscopy in the past. Does take Aleve once every 2 weeks 4 right shoulder pain. Did not take NSAIDs in the last 1 month. No chest pain, palpitations, shortness of breath, abdominal pain, changes in urinary or bowel habits. Recently completed p.o. doxycycline for concerns of right lower extremity cellulitis but states the redness and warmth persist. In the emergency department, hemoglobin dropped to 9.7 and patient was initiated on IV Protonix. Review of Systems Constitutional: Constitutional: Reports fatigue Cardiovascular: Cardiovascular: Reports no additional cardiovascular complaints Respiratory: Respiratory: Reports no additional respiratory complaints Gastrointestinal: Gastrointestinal: Reports melena Genitourinary: Genitourinary: Reports no additional male genitourinary complaints Endocrine: Endocrine: Reports fatigue [facility] Medical History Lower extremity edema Hyperlipidemia STEMI (ST elevation myocardial infarction) Social History Smoked in Last 30 Days: No Advance Directives: No Advance Directives Information Provided: Yes Meds Allergies Allergy/AdvReac Type Severity Reaction Status Date / Time No Known Allergies Allergy Verified 09/09/24 15:58 Physical Exam Vital Signs and Narrative: Vital Signs: Last Vital Signs Temp 97.7 F 09/09/24 20:06 Pulse 103 H 09/09/24 20:06 Resp 20 09/09/24 20:06 BP 102/55 L 09/09/24 20:06 Pulse Ox 98 09/09/24 20:06 O2 Del Method Room Air 09/09/24 20:06 BMI result Body Mass Index 31.6 Elderly male lying in bed in no distress Neck supple, no JVD Regular rate and rhythm, S1-S2 heard Regular breath sounds bilaterally, no wheezing or crackles appreciated Abdomen soft nontender, no guarding, no rigidity Patient is awake, alert and oriented to self, place, time and person ; no focal motor deficit Psych: Normal mood Right lower extremity with erythema and warmth ; also seen venous stasis changes with bilateral pedal edema Results Labs 09/09/24 16:15 09/09/24 16:15 Labs: Laboratory Results - last 24 hr 09/09/24 09/09/24 16:15 21:02 MCV 93.4 MCH 33.7 H MCHC 36.1 H RDW 12.7 Plt Count 223 D MPV 9.2 L Immature Gran % (Auto) 0.1 Neut % (Auto) 66.4 Lymph % (Auto) 26.1 [place] % (Auto) 6.0 Eos % (Auto) 0.7 Baso % (Auto) 0.7 Lymph # (Auto) 2.1 [place] # (Auto) 0.5 Eos # (Auto) 0.1 Baso # (Auto) 0.1 Abs Immat Gran (auto) 0.01 Absolute Neuts (auto) 5.3 Absolute Nucleated RBC 0.000 Nucleated RBC % (auto) 0.0 PT 13.3 H INR 1.1 Anion Gap 17 Estim Creat Clear Calc 47.2 Estimated GFR 57 Random Glucose 245 H Calcium 9.3 Magnesium 1.5 L Total Bilirubin 0.5 AST 21 ALT 14 Alkaline Phosphatase 44 Troponin I High Sens < 2.7 D B-Natriuretic Peptide 12 Total Protein 6.5 Albumin 3.8 Lipase 30 Urine Color Yellow Urine Appearance Clear Urine pH 5.5 Ur Specific [place] 1.025 Urine Protein Negative Urine Glucose (UA) Negative Urine Ketones Trace Urine Blood Negative Urine Nitrite Negative Ur Leukocyte Esterase Negative Influenza Type A (PCR) NEGATIVE Influenza Type B (PCR) NEGATIVE RSV RNA Qual (PCR) NEGATIVE SARS-CoV-2 RNA (RT-PCR) NEGATIVE Imaging Radiologist's Impressions: Impressions Chest X-Ray 09/09/24 16:25 IMPRESSION: Unremarkable examination. Electronically signed by: Gary Vang MD 09/09/2024 05:26 PM EDT Abdomen/Pelvis CT 09/09/24 19:43 IMPRESSION: 1. No evidence of active GI bleeding. 2. Colonic diverticulosis without diverticulitis. 3. Cholelithiasis without cholecystitis. Electronically signed by: Gary Vang MD 09/09/2024 09:34 PM EDT RP Assessment and Plan (1) GI bleed: Status: Acute Plan This is a 84-year-old male with pertinent history of hypertension, lower extremity leg edema, oev-qcfavxo-zdxqyjjdo diabetes mellitus, mixed hyperlipidemia, coronary artery disease who presents to the emergency department for evaluation of dark stools. #. Acute GI bleed: Will admit patient with cardiac monitoring. Initiated IV Protonix. Consulted Gastroenterology, appreciate assistance. #. Acute blood loss anemia in the setting of above: Closely monitor H&H #. Right lower extremity cellulitis: Background of chronic venous stasis. Failed outpatient antibiotics. Initiating IV vancomycin #. Xrs-uykgyfz-eewppqbkl diabetes mellitus with hyperglycemia: Initiating Accu-Cheks with sliding scale insulin every 6 hours #. Hypertension/lower extremity edema: Hold furosemide and antihypertensives in the setting of acute GI bleed #. Coronary artery disease: Hold aspirin Med rec pending DVT prophylaxis: Mechanical Full code Admit as inpatient and will require two night minimum hospital stay for treatment of acute GI bleed, close monitoring of hemodynamics/H&H (as above), which is not possible in a lesser acute setting. Specialist consult pending Quality Stroke Does the patient have a stroke diagnosis?: No VTE Prior VTE?: No VTE Risk Level:: Medical - moderate - high VTE Device Contraindication: N/A - Device Ordered VTE Drug Contraindication: Treatment Not Indicated
[2024-09-09] MEDS: vancomycin/NS 2,000 MG/500 ML PLAST..BAG 250 MG IV (23:24)
[2024-09-09] MEDS: 0.9 % Sodium Chloride Flush 3 ML SYRINGE IVFLUSH (23:25)
[2024-09-09 23:30] VITALS: BP 98/62; PULSE 106; RESP 24; TEMP 36.6; O2SAT 99
[2024-09-10] VITALS (7 sets, daily range): BP systolic 91–128; BP diastolic 53–63; PULSE 82–103; RESP 14–20; TEMP 36.5–37.1; O2SAT 96–99; BMI 30.9
[2024-09-10 00:32] LABS: Glucose, Whole Blood 200 mg/dL (60-115)
[2024-09-10] MEDS: Insulin Lispro 100 UNIT/ML 3 ML VIAL SUBCUT ×4 (00:32→18:07)
[2024-09-10] MEDS: Pantoprazole Sodium 40 MG/10 ML VIAL IVPUSH ×2 (05:51→16:51)
[2024-09-10 05:54] LABS: Glucose, Whole Blood 167 mg/dL (60-115)
[2024-09-10 06:43] LABS: Anion Gap 16 (12-20); Blood Urea Nitrogen 26 mg/dL (9-16); Calcium 8.5 mg/dL (8.4-10.2); Carbon Dioxide 19 mmol/L (22-29); Chloride 107 mmol/L (96-108); Creatinine Clr Calc Pharmacy 56.5; Estimated Glomerular Filt Rate > 60; Glucose Random 177 mg/dL (60-115); Magnesium 2.1 mg/dL (1.6-2.6); Sodium 138 mmol/L (135-145)
--- NOTE | 2024-09-10 08:36 | HO.PM.IMPN ---
Subjective Subjective Date of Service: 09/10/24 Interval History: no further melena reported Physical Exam Vital Signs: Vital Signs: Last Vital Signs Temp 98.4 F 09/10/24 04:00 Pulse 93 09/10/24 04:00 Resp 20 09/10/24 04:00 BP 128/63 09/10/24 04:00 Pulse Ox 98 09/10/24 04:00 O2 Del Method Room Air 09/10/24 04:00 BMI result Body Mass Index 30.9 General: AO X 3, no acute distress Resp: CTA bilateral, no accessory muscles used CVS: S1,S2,RRR GI: soft, non tender, non distended Neuro: motor grossly intact, alert Psych: appropriate affect, appropriate insight Objective Data Active Medications Acetaminophen (Acetaminophen 325 Mg Tablet) 650 mg PO Q6H PRN PRN Reason: Pain, Mild (Pain Scale 1-3), fever or headache Calcium Carbonate (Calcium Carbonate 750 Mg Tab.Chew) 750 mg PO Q4H PRN PRN Reason: Heartburn Glucose (Glucose Gel 15 Gm Gel..Gram.) 15 gm PO Q15M PRN; Protocol PRN Reason: per Hypoglycemia Standing Ord. Dextrose (D10) 250 mls @ 750 mls/hr IV Q15M PRN; Protocol PRN Reason: per Hypoglycemia Standing Ord. Vancomycin HCl 750 mg/ Sodium (Chloride) 265 mls @ 265 mls/hr IV Q12H [facility] Insulin Human Lispro (Insulin Lispro 100 Unit/Ml 3 Ml Vial) 0 unit SUBCUT Q6H [facility]; Protocol Last Admin: 09/10/24 05:51 Dose: 2 unit Documented By: SHOBHA Magnesium Hydroxide (Milk Of Magnesia 30 Ml Oral.Susp) 30 ml PO DAILY PRN PRN Reason: Constipation Melatonin (Melatonin 3 Mg Tablet) 6 mg PO BEDTIME PRN PRN Reason: Insomnia Ondansetron HCl (Ondansetron Hcl 4 Mg/2 Ml Vial) 4 mg IVPUSH Q8H PRN PRN Reason: Nausea and Vomiting Pantoprazole Sodium (Pantoprazole Sodium 40 Mg/10 Ml Vial) 40 mg IVPUSH BID@0630,1630 [facility] Last Admin: 09/10/24 05:51 Dose: 40 mg Documented By: SHOBHA Pharmacy Consult (Consult Rx Vancomycin Dosing) 1 each MISCELLANE DAILY PRN PRN Reason: Consult order Sodium Chloride (0.9 % Sodium Chloride Flush 3 Ml Syringe) 3 ml IVFLUSH QSHIFT [facility] Last Admin: 09/09/24 23:25 Dose: 3 ml Documented By: FATOU Labs 09/09/24 16:15 09/10/24 05:54 Labs: Laboratory Results - last 24 hr 09/09/24 09/09/24 09/10/24 16:15 21:02 00:00 MCV 93.4 MCH 33.7 H MCHC 36.1 H RDW 12.7 Plt Count 223 D MPV 9.2 L Immature Gran % (Auto) 0.1 Neut % (Auto) 66.4 Lymph % (Auto) 26.1 [place] % (Auto) 6.0 Eos % (Auto) 0.7 Baso % (Auto) 0.7 Lymph # (Auto) 2.1 [place] # (Auto) 0.5 Eos # (Auto) 0.1 Baso # (Auto) 0.1 Abs Immat Gran (auto) 0.01 Absolute Neuts (auto) 5.3 Absolute Nucleated RBC 0.000 Nucleated RBC % (auto) 0.0 PT 13.3 H INR 1.1 Anion Gap 17 Estim Creat Clear Calc 47.2 Estimated GFR 57 POC Glucose 200 H Random Glucose 245 H Calcium 9.3 Magnesium 1.5 L Total Bilirubin 0.5 AST 21 ALT 14 Alkaline Phosphatase 44 Troponin I High Sens < 2.7 D B-Natriuretic Peptide 12 Total Protein 6.5 Albumin 3.8 Lipase 30 Urine Color Yellow Urine Appearance Clear Urine pH 5.5 Ur Specific [place] 1.025 Urine Protein Negative Urine Glucose (UA) Negative Urine Ketones Trace Urine Blood Negative Urine Nitrite Negative Ur Leukocyte Esterase Negative Influenza Type A (PCR) NEGATIVE Influenza Type B (PCR) NEGATIVE RSV RNA Qual (PCR) NEGATIVE SARS-CoV-2 RNA (RT-PCR) NEGATIVE 09/10/24 09/10/24 05:41 05:54 MCV MCH MCHC RDW Plt Count MPV Immature Gran % (Auto) Neut % (Auto) Lymph % (Auto) [place] % (Auto) Eos % (Auto) Baso % (Auto) Lymph # (Auto) [place] # (Auto) Eos # (Auto) Baso # (Auto) Abs Immat Gran (auto) Absolute Neuts (auto) Absolute Nucleated RBC Nucleated RBC % (auto) PT INR Anion Gap 16 Estim Creat Clear Calc 56.5 Estimated GFR > 60 POC Glucose 167 H Random Glucose 177 H Calcium 8.5 D Magnesium 2.1 Total Bilirubin AST ALT Alkaline Phosphatase Troponin I High Sens B-Natriuretic Peptide Total Protein Albumin Lipase Urine Color Urine Appearance Urine pH Ur Specific [place] Urine Protein Urine Glucose (UA) Urine Ketones Urine Blood Urine Nitrite Ur Leukocyte Esterase Influenza Type A (PCR) Influenza Type B (PCR) RSV RNA Qual (PCR) SARS-CoV-2 RNA (RT-PCR) Assessment and Plan (1) GI bleed: Status: Acute Plan 84M PMH CAD, hypertension, diabetes presented with melena Acute blood loss anemia Continue IV Protonix, follow up hemoglobin, follow up GI Right lower extremity cellulitis Continue IV vancomycin Diabetes Insulin sliding scale Hypertension Holding meds for acute bleed CAD Holding aspirin DVT prophylaxis-mechanical due to GI bleed Full code reason for continued hospitalization: IV Protonix for GI bleed and monitoring Quality Stroke Does the patient have a stroke diagnosis?: No VTE Prior VTE?: No VTE Risk Level:: Medical - moderate - high VTE Device Contraindication: N/A - Device Ordered VTE Drug Contraindication: Treatment Not Indicated
[2024-09-10 09:27] LABS: Hematocrit 23.3 % (42.0-52.0); Hemoglobin 8.3 g/dl (14.0-18.0); Mean Corpuscular HGB Conc 35.6 g/dl (31.0-36.0); Mean Corpuscular Hemoglobin 33.6 pg (27.0-33.0); Mean Corpuscular Volume 94.3 fL (80.0-98.0); Mean Platelet Volume 9.2 fL (9.4-12.4); Platelet Count 152 X10*3/uL (160-400); Red Blood Count 2.47 X10*6/uL (4.60-5.80); Red Cell Distribution Width 12.9 % (11.0-16.0); White Blood Count 6.6 X10*3/uL (4.8-10.8)
--- NOTE | 2024-09-10 10:15 | PHA.MEDREC ---
Addendum entered by Nirav Rivera 09/10/24 10:43: Reviewed Original Note: Pharmacy Consult ? Medication Reconciliation Pharmacy has completed the medication reconciliation. Spoke with patient to confirm medications. He reports taking 2 tablets of metformin in the morning and 1 tablet at night (rx says 500 mg BID). He finished the doxycycline on Wednesday. His furosemide was increased to 40 mg a few weeks ago. He take a 1/2 tablet of his metorpolol BID. Patient reports that he has not taken his medications for the past few days.
[2024-09-10] MEDS: 0.9 % Sodium Chloride Flush 3 ML SYRINGE IVFLUSH ×2 (10:17→18:08)
[2024-09-10] MEDS: vancomycin HCL 750 MG in 0.9 % Sodium Chloride 250 ML 265 MG IV ×2 (10:17→23:54)
[2024-09-10 10:49] LABS: Troponin-I High Sensitivity 3.9 ng/L (<3.5-35.0)
[2024-09-10 11:59] LABS: Glucose, Whole Blood 213 mg/dL (60-115)
--- NOTE | 2024-09-10 13:19 | MHC.CM.PN ---
PT REPORTS HE LIVES WITH HIS AND 21 YEAR OLD GRANDDAUGHTER HE IS INDEPENDENT AT BL AND USES NO DME HE WILL COMPLETE A HCP TODAY NAMING HIS GRANDDAUGHTER AND DAUGHTER HIS AGENTS PCP: KELLY JORDAN IMM DELIVERED DCP: HOME ? [facility] TO TRANSPORT
[2024-09-10 14:11] LABS: MANUAL DIFF FLAG NO
[2024-09-10 14:13] LABS: Basophils Absolute Auto 0.1 X10*3/uL (0.0-0.2); Basophils Percent Auto 0.7 % (0-2); Eosinophils Absolute Auto 0.1 X10*3/uL (0.0-0.4); Eosinophils Percent Auto 1.4 % (0-4); Hematocrit 25.8 % (42.0-52.0); Hemoglobin 9.2 g/dl (14.0-18.0); Imm Gran Abs Auto 0.03 X10*3/uL (0.00-0.03); Imm Gran Pct Auto 0.4 % (0.0-0.4); Lymphocytes Absolute Auto 0.5 X10*3/uL (1.2-4.9); Lymphocytes Percent Auto 7.2 % (20-40); Mean Corpuscular HGB Conc 35.7 g/dl (31.0-36.0); Mean Corpuscular Hemoglobin 34.2 pg (27.0-33.0); Mean Corpuscular Volume 95.9 fL (80.0-98.0); Mean Platelet Volume 8.9 fL (9.4-12.4); Monocytes Absolute Auto 0.4 X10*3/uL (0.1-1.2); Monocytes Percent Auto 5.7 % (2-11); Neutrophils Absolute Auto 6.3 x10*3/uL (2.0-8.3); Neutrophils Percent Auto 84.6 % (45-73); Platelet Count 166 X10*3/uL (160-400); Red Blood Count 2.69 X10*6/uL (4.60-5.80); White Blood Count 7.4 X10*3/uL (4.8-10.8)
[2024-09-10 17:36] LABS: Glucose, Whole Blood 236 mg/dL (60-115)
--- NOTE | 2024-09-10 19:33 | PM.EVENT ---
Event Note Date of Service: 09/10/24 Event Note: GI Consult-Full note dictated Imp: UGI bleed in an 84 yo male on daily 81mg ASA and very occasional Aleve. He does describe some increased belching lately, but no other GI complaints. He has been stable since admission. Diff dx: PUD, esophagitis, gastritis, GI neoplasm. Rec: Upper endoscopy tomorrow, 09/11. Full consent obtained for this, including risks of bleeding and perforation. Continue IV PPI and F/U labs. D/W patient in detail and patient is comfortable with this plan. I advised him that if the upper endoscopy is negative he would need a colonoscopy. Thanks Time Spent With Patient Time: Total time managing care of this patient today ____ minutes.
[2024-09-10] MEDS: Atorvastatin Calcium 40 MG TABLET PO (20:51)
[2024-09-10 22:58] LABS: Glucose, Whole Blood 200 mg/dL (60-115)
[2024-09-11] VITALS (9 sets, daily range): BP systolic 90–125; BP diastolic 46–60; PULSE 78–96; RESP 16–20; TEMP 36.2–37.1; O2SAT 96–99
--- NOTE | 2024-09-11 02:14 | CONS_ITS ---
DATE OF SERVICE: 09/10/2024 REASON FOR CONSULTATION: Melena and anemia. HISTORY OF PRESENT ILLNESS: The patient is an 84-year-old male who was well up until 48 hours ago when he noticed the onset of black stool. He has noticed some increased belching recently, but otherwise denies any particular GI complaints. He specifically denies any history of significant heartburn, dysphagia, anorexia, early satiety, nausea, nor vomiting. He denies any abdominal pain, jaundice, nor weight loss. His bowel movements have previously been regular and without any sign of melena nor hematochezia. He denies any history of ulcer disease. He has never had an endoscopy nor colonoscopy. He does take a single 81 mg aspirin daily in relation to coronary artery disease. He takes a very occasional Aleve. He does not smoke nor use any significant amounts of alcohol. Since admission here, he has been hemodynamically stable. His initial hemoglobin was 9.7, which dropped to 8.3 this morning, but was 9.2 this afternoon. He had a hemoglobin of 13.7 earlier this month. MEDICATIONS: At home included aspirin 81 mg, furosemide, metformin, metoprolol, and rosuvastatin. His medications here in the hospital include IV pantoprazole, acetaminophen, atorvastatin, Tums, sliding scale insulin, melatonin, metoprolol, Zofran, IV pantoprazole, IV vancomycin. PAST MEDICAL HISTORY: Coronary artery disease with angioplasty over 20 years ago. He describes AL prior to that, but no cardiac problems since then. Ntd-[id number]-[id number] diabetes mellitus. Hyperlipidemia. He denies history of stroke, lung disease, nor kidney disease. PAST SURGICAL HISTORY: Pilonidal cyst and ruptured appendix. SOCIAL HISTORY: He is retired. He is . He does not smoke nor use any significant amounts of alcohol. FAMILY HISTORY: Noncontributory. REVIEW OF SYSTEMS: CONSTITUTIONAL: He has been feeling well up until the past couple of days. His appetite had been good. SKIN: Without rash. No pruritus. CARDIAC: No chest pain. PULMONARY: No coughing or hemoptysis. GI: As above. URINARY: No dysuria. No hematuria. NEUROLOGIC: No headache or seizures. PHYSICAL EXAMINATION: GENERAL: The patient is a pleasant, alert, comfortable appearing male. SKIN: Warm and dry. Nonjaundiced. Anicteric sclerae. NECK: Supple. CHEST: Clear. CARDIAC: Normal S1, S2. ABDOMEN: Soft, nondistended, nontender without mass. EXTREMITIES: Without edema. LABORATORY DATA: His most recent CBC from this afternoon showed a white blood cell count of 7.4, hemoglobin 9.2, MCV 96, platelets 166,000. PT 13.3 with INR 1.1. Normal electrolytes. BUN 26, creatinine 1.0. His BUN yesterday was 35. LFTs normal. Lipase 30. He had a CT scan of the abdomen yesterday and was negative for any sign of active bleeding. There was evidence of some gallstones and diverticulosis, but without any sign of cholecystitis nor diverticulitis, respectively. IMPRESSION: The patient is an 84-year-old male presenting with an acute upper gastrointestinal bleed. He does take a low-dose aspirin daily, but has no other risk factors for peptic ulcer disease, other than a very occasional Aleve as well. At this point, he appears stable. I would recommend upper endoscopy for further evaluation to assess for ulcer disease, esophagitis, gastritis, or the unlikely possibility of gastric neoplasm. Full consent was obtained from him for this, including risks of bleeding and perforation. In the meantime, I would continue him on IV PPI and follow his laboratories. At this point, does not appear to need transfusion, but I would recommend transfusion if his hemoglobin falls below 8.5. This has been discussed with the patient in detail and he is comfortable with the plan. MD STEVE Blackwell/UGO / [id number] MTDLisandra
[2024-09-11 05:18] LABS: Glucose, Whole Blood 168 mg/dL (60-115)
[2024-09-11] MEDS: Pantoprazole Sodium 40 MG/10 ML VIAL IVPUSH ×2 (06:21→15:27)
[2024-09-11 06:35] LABS: Hematocrit 22.8 % (42.0-52.0); Hemoglobin 7.8 g/dl (14.0-18.0); Mean Corpuscular HGB Conc 34.2 g/dl (31.0-36.0); Mean Corpuscular Hemoglobin 32.8 pg (27.0-33.0); Mean Corpuscular Volume 95.8 fL (80.0-98.0); Mean Platelet Volume 9.2 fL (9.4-12.4); Platelet Count 163 X10*3/uL (160-400); Red Blood Count 2.38 X10*6/uL (4.60-5.80); Red Cell Distribution Width 13.1 % (11.0-16.0); White Blood Count 4.7 X10*3/uL (4.8-10.8)
[2024-09-11 06:50] LABS: Anion Gap 9 (12-20); Blood Urea Nitrogen 13 mg/dL (9-16); Calcium 8.2 mg/dL (8.4-10.2); Carbon Dioxide 27 mmol/L (22-29); Chloride 108 mmol/L (96-108); Creatinine Clr Calc Pharmacy 63.5; Estimated Glomerular Filt Rate > 60; Glucose Fasting 177 mg/dL (60-99); Potassium 3.7 mmol/L (3.3-5.1); Sodium 140 mmol/L (135-145)
--- NOTE | 2024-09-11 08:45 | P.PNIM_ITS ---
Subjective Subjective Date of Service: 09/11/24 Interval History: No further melena Physical Exam 2 Vital Signs: Vital Signs: Last Vital Signs Temp 97.4 F 09/11/24 08:00 Pulse 80 09/11/24 08:00 Resp 18 09/11/24 08:00 BP 115/56 L 09/11/24 08:00 Pulse Ox 98 09/11/24 08:00 O2 Del Method Room Air 09/11/24 08:00 BMI result Body Mass Index 30.9 General: AO X 3, no acute distress Resp: CTA bilateral, no accessory muscles used CVS: S1,S2,RRR GI: soft, non tender, non distended Neuro: motor grossly intact, alert Psych: appropriate affect, appropriate insight Objective Data Active Medications Acetaminophen (Acetaminophen 325 Mg Tablet) 650 mg PO Q6H PRN PRN Reason: Pain, Mild (Pain Scale 1-3), fever or headache Atorvastatin Calcium (Atorvastatin Calcium 40 Mg Tablet) 40 mg PO BEDTIME [facility] Last Admin: 09/10/24 20:51 Dose: 40 mg Documented By: KANA Calcium Carbonate (Calcium Carbonate 750 Mg Tab.Chew) 750 mg PO Q4H PRN PRN Reason: Heartburn Glucose (Glucose Gel 15 Gm Gel..Gram.) 15 gm PO Q15M PRN; Protocol PRN Reason: per Hypoglycemia Standing Ord. Dextrose (D10) 250 mls @ 750 mls/hr IV Q15M PRN; Protocol PRN Reason: per Hypoglycemia Standing Ord. Vancomycin HCl 750 mg/ Sodium (Chloride) 265 mls @ 265 mls/hr IV Q12H [facility] Last Infusion: 09/11/24 05:59 Dose: Infused Documented By: KANA Insulin Human Lispro (Insulin Lispro 100 Unit/Ml 3 Ml Vial) 0 unit SUBCUT Q6H [facility]; Protocol Last Admin: 09/11/24 06:41 Dose: Not Given Documented By: KANA Non-Admin Reason: NPO Magnesium Hydroxide (Milk Of Magnesia 30 Ml Oral.Susp) 30 ml PO DAILY PRN PRN Reason: Constipation Melatonin (Melatonin 3 Mg Tablet) 6 mg PO BEDTIME PRN PRN Reason: Insomnia Metoprolol Succinate (Metoprolol Succinate Er 12.5 Mg Halftab.Er.24h) 12.5 mg PO BID [facility]; Protocol Last Admin: 09/10/24 23:34 Dose: Not Given Documented By: KANA Non-Admin Reason: See Note Comments: Low diastolic BP per order parameters Ondansetron HCl (Ondansetron Hcl 4 Mg/2 Ml Vial) 4 mg IVPUSH Q8H PRN PRN Reason: Nausea and Vomiting Pantoprazole Sodium (Pantoprazole Sodium 40 Mg/10 Ml Vial) 40 mg IVPUSH BID@0630,1630 [facility] Last Admin: 09/11/24 06:21 Dose: 40 mg Documented By: KANA Pharmacy Consult (Consult Rx Vancomycin Dosing) 1 each MISCELLANE DAILY PRN PRN Reason: Consult order Sodium Chloride (0.9 % Sodium Chloride Flush 3 Ml Syringe) 3 ml IVFLUSH QSHIFT [facility] Last Admin: 09/11/24 06:33 Dose: Not Given Documented By: KANA Non-Admin Reason: Patient Refused Labs 09/11/24 05:43 09/11/24 05:43 Labs: Laboratory Results - last 24 hr 09/10/24 09/10/24 09/10/24 09:19 10:11 11:55 MCV 94.3 MCH 33.6 H MCHC 35.6 RDW 12.9 Plt Count 152 L D MPV 9.2 L Immature Gran % (Auto) Neut % (Auto) Lymph % (Auto) [place] % (Auto) Eos % (Auto) Baso % (Auto) Lymph # (Auto) [place] # (Auto) Eos # (Auto) Baso # (Auto) Abs Immat Gran (auto) Absolute Neuts (auto) Absolute Nucleated RBC 0.000 Nucleated RBC % (auto) 0.0 Anion Gap Estim Creat Clear Calc Estimated GFR POC Glucose 213 H Fasting Glucose Calcium Troponin I High Sens 3.9 09/10/24 09/10/24 09/10/24 14:06 17:31 22:52 MCV 95.9 MCH 34.2 H MCHC 35.7 RDW 13.0 Plt Count 166 MPV 8.9 L Immature Gran % (Auto) 0.4 Neut % (Auto) 84.6 H Lymph % (Auto) 7.2 L [place] % (Auto) 5.7 Eos % (Auto) 1.4 Baso % (Auto) 0.7 Lymph # (Auto) 0.5 L [place] # (Auto) 0.4 Eos # (Auto) 0.1 Baso # (Auto) 0.1 Abs Immat Gran (auto) 0.03 Absolute Neuts (auto) 6.3 Absolute Nucleated RBC 0.000 Nucleated RBC % (auto) 0.0 Anion Gap Estim Creat Clear Calc Estimated GFR POC Glucose 236 H 200 H Fasting Glucose Calcium Troponin I High Sens 09/11/24 09/11/24 05:14 05:43 MCV 95.8 MCH 32.8 MCHC 34.2 RDW 13.1 Plt Count 163 MPV 9.2 L Immature Gran % (Auto) Neut % (Auto) Lymph % (Auto) [place] % (Auto) Eos % (Auto) Baso % (Auto) Lymph # (Auto) [place] # (Auto) Eos # (Auto) Baso # (Auto) Abs Immat Gran (auto) Absolute Neuts (auto) Absolute Nucleated RBC 0.000 Nucleated RBC % (auto) 0.0 Anion Gap 9 L Estim Creat Clear Calc 63.5 Estimated GFR > 60 POC Glucose 168 H Fasting Glucose 177 H Calcium 8.2 L Troponin I High Sens Assessment and Plan (1) GI bleed: Status: Acute Plan 84M PMH CAD, hypertension, diabetes presented with melena Acute blood loss anemia Continue IV Protonix, follow up hemoglobin Plan for EGD today, if no source found may need colonoscopy Right lower extremity cellulitis Continue IV vancomycin Diabetes Insulin sliding scale Hypertension Holding meds for acute bleed - low normal blood pressures CAD Holding aspirin DVT prophylaxis-mechanical due to GI bleed Full code reason for continued hospitalization: IV Protonix for GI bleed and monitoring Quality Stroke Does the patient have a stroke diagnosis?: No VTE Prior VTE?: No VTE Risk Level:: Medical - moderate - high VTE Device Contraindication: N/A - Device Ordered VTE Drug Contraindication: Treatment Not Indicated
[2024-09-11 09:44] LABS: Vancomycin Random 11.5 mcg/mL (15-20)
[2024-09-11] MEDS: 0.9 % Sodium Chloride Flush 3 ML SYRINGE IVFLUSH ×2 (09:44→15:27)
[2024-09-11] MEDS: Metoprolol Succinate ER 12.5 MG HALFTAB.ER.24H PO ×2 (09:44→20:28)
[2024-09-11] MEDS: vancomycin HCL 750 MG in 0.9 % Sodium Chloride 250 ML 265 MG IV ×2 (09:45→22:32)
--- NOTE | 2024-09-11 09:50 | HE.PHANOTE ---
Addendum entered by Aaliyah Olson RPh 09/12/24 10:39: Pt's trough returned at 12.3, subtherapeutic once again so dose was increased to 1000mg Q12H, predicted AUC 523, predicted trough 16.7. Pt's renal function did trend upwards so another trough was entered for 09/13 @0900 to ensure safety of dose and stability of renal function. Original Note: RE [facility] Patients level came back this morning at 11.5. Patient has only received load and two doses of 750 mg. Patients indication is skin, therefore will continue with current dose. Level to be taken 09/12 @0900 to ensure safety vs efficacy. Rx insight predicted AUC 479 with a trough of 16.3
[2024-09-11 11:35] LABS: Glucose, Whole Blood 189 mg/dL (60-115)
--- NOTE | 2024-09-11 16:02 | MHC.SHP ---
Pre-Procedural Eval Section A - 24 Hr Update-Section A only Date of Service: 09/11/24 The patient is an INPATIENT: Yes The patient has been examined within 24 hours of the surgical procedure. The History & Physical has been completed within 30 days and I have reviewed it.: Yes Section B - Complete if H&P > 30 days Chief Complaint: GI Bleed Allergies: Allergies Allergy/AdvReac Type Severity Reaction Status Date / Time No Known Allergies Allergy Verified 09/09/24 15:58 Plan I have reviewed the history and physical and performed a pertinent physical examination on my patient. No changes have occurred unless specified. Time Spent With Patient Time: Total time managing care of this patient today ____ minutes.
--- NOTE | 2024-09-11 16:19 | P.CONAN_ITS ---
HPI - Anesthesia Eval Consult details Narrative: 84 yo male patient for EGD PMFSH Active Problems Active Problems: All Active Problems GI bleed (Acute) Anemia HTN DM LE edema Past Medical History Medical History Diabetes HTN (hypertension) Lower extremity edema Hyperlipidemia STEMI (ST elevation myocardial infarction) Family History Family history of problems with anesthesia: No Surgical History Surgical History History of appendectomy History of excision of pilonidal cyst H/O angioplasty History of Problems with Anesthesia: No Social History Social History Household Members: Spouse Housing: House Are you a primary long term care phlebotomist to a significant other at home: No Do you presently have visiting nurse or other home services: No Patient Tobacco Use Status: Never used Tobacco service: Yes Meds Allergies Allergy/AdvReac Type Severity Reaction Status Date / Time No Known Allergies Allergy Verified 09/11/24 16:02 Active Medications: Current Medications Acetaminophen (Acetaminophen 325 Mg Tablet) 650 mg PO Q6H PRN PRN Reason: Pain, Mild (Pain Scale 1-3), fever or headache Atorvastatin Calcium (Atorvastatin Calcium 40 Mg Tablet) 40 mg PO BEDTIME FABIOLA Last Admin: 09/10/24 20:51 Dose: 40 mg Calcium Carbonate (Calcium Carbonate 750 Mg Tab.Chew) 750 mg PO Q4H PRN PRN Reason: Heartburn Glucose (Glucose Gel 15 Gm Gel..Gram.) 15 gm PO Q15M PRN; Protocol PRN Reason: per Hypoglycemia Standing Ord. Dextrose (D10) 250 mls @ 750 mls/hr IV Q15M PRN; Protocol PRN Reason: per Hypoglycemia Standing Ord. Vancomycin HCl 750 mg/ Sodium (Chloride) 265 mls @ 265 mls/hr IV Q12H FABIOLA Last Infusion: 09/11/24 10:58 Dose: Infused Insulin Human Lispro (Insulin Lispro 100 Unit/Ml 3 Ml Vial) 0 unit SUBCUT Q6H FABIOLA; Protocol Last Admin: 09/11/24 11:40 Dose: Not Given Magnesium Hydroxide (Milk Of Magnesia 30 Ml Oral.Susp) 30 ml PO DAILY PRN PRN Reason: Constipation Melatonin (Melatonin 3 Mg Tablet) 6 mg PO BEDTIME PRN PRN Reason: Insomnia Metoprolol Succinate (Metoprolol Succinate Er 12.5 Mg Halftab.Er.24h) 12.5 mg PO BID [facility]; Protocol Last Admin: 09/11/24 09:44 Dose: 12.5 mg Ondansetron HCl (Ondansetron Hcl 4 Mg/2 Ml Vial) 4 mg IVPUSH Q8H PRN PRN Reason: Nausea and Vomiting Pantoprazole Sodium (Pantoprazole Sodium 40 Mg/10 Ml Vial) 40 mg IVPUSH BID@0630,1630 [facility] Last Admin: 09/11/24 15:27 Dose: 40 mg Pharmacy Consult (Consult Rx Vancomycin Dosing) 1 each MISCELLANE DAILY PRN PRN Reason: Consult order Sodium Chloride (0.9 % Sodium Chloride Flush 3 Ml Syringe) 3 ml IVFLUSH QSHIFT [facility] Last Admin: 09/11/24 15:27 Dose: 3 ml Home Medications ?Medication ?Instructions ?Recorded ?Confirmed ?Last Taken ?Type aspirin 81 mg tablet,delayed 81 mg PO DAILY 09/10/24 09/11/24 09/07/24 History release furosemide 40 mg tablet 40 mg PO DAILY 09/10/24 09/10/24 Unknown History metformin 500 mg tablet 1,000 mg PO DAILY@0800 09/10/24 09/10/24 Unknown History metformin 500 mg tablet 500 mg PO BEDTIME 09/10/24 09/10/24 Unknown History metoprolol succinate 25 mg 12.5 mg PO BID 09/10/24 09/10/24 Unknown History tablet,extended release 24 hr rosuvastatin 10 mg tablet 10 mg PO BEDTIME 09/10/24 09/10/24 Unknown History Exam Height,Weight and Vital Signs: Height 5 ft 7 in Weight 89.5 kg Last Vital Signs Temp 98.7 F 09/11/24 16:03 Pulse 84 09/11/24 16:03 Resp 16 09/11/24 16:03 BP 125/56 L 09/11/24 16:03 Pulse Ox 99 09/11/24 16:03 O2 Del Method Room Air 09/11/24 16:03 Pertinent Lab Results Pertinent Lab Results: Laboratory Tests 09/09/24 09/09/24 09/10/24 16:15 21:02 00:00 WBC 8.0 RBC 2.88 L D Hgb 9.7 L D Hct 26.9 L D MCV 93.4 MCH 33.7 H MCHC 36.1 H RDW 12.7 Plt Count 223 D MPV 9.2 L Immature Gran % (Auto) 0.1 Neut % (Auto) 66.4 Lymph % (Auto) 26.1 [place] % (Auto) 6.0 Eos % (Auto) 0.7 Baso % (Auto) 0.7 Lymph # (Auto) 2.1 [place] # (Auto) 0.5 Eos # (Auto) 0.1 Baso # (Auto) 0.1 Abs Immat Gran (auto) 0.01 Absolute Neuts (auto) 5.3 Absolute Nucleated RBC 0.000 Nucleated RBC % (auto) 0.0 PT 13.3 H INR 1.1 Sodium 137 Potassium 3.8 Chloride 102 Carbon Dioxide 22 Anion Gap 17 BUN 35 H Creatinine 1.21 Estim Creat Clear Calc 47.2 Estimated GFR 57 POC Glucose 200 H Random Glucose 245 H Fasting Glucose Calcium 9.3 Magnesium 1.5 L Total Bilirubin 0.5 AST 21 ALT 14 Alkaline Phosphatase 44 Troponin I High Sens < 2.7 D B-Natriuretic Peptide 12 Total Protein 6.5 Albumin 3.8 Lipase 30 Urine Color Yellow Urine Appearance Clear Urine pH 5.5 Ur Specific [place] 1.025 Urine Protein Negative Urine Glucose (UA) Negative Urine Ketones Trace Urine Blood Negative Urine Nitrite Negative Ur Leukocyte Esterase Negative Random Vancomycin Influenza Type A (PCR) NEGATIVE Influenza Type B (PCR) NEGATIVE RSV RNA Qual (PCR) NEGATIVE SARS-CoV-2 RNA (RT-PCR) NEGATIVE 09/10/24 09/10/24 09/10/24 05:41 05:54 09:19 WBC 6.6 RBC 2.47 L Hgb 8.3 L Hct 23.3 L MCV 94.3 MCH 33.6 H MCHC 35.6 RDW 12.9 Plt Count 152 L D MPV 9.2 L Immature Gran % (Auto) Neut % (Auto) Lymph % (Auto) [place] % (Auto) Eos % (Auto) Baso % (Auto) Lymph # (Auto) [place] # (Auto) Eos # (Auto) Baso # (Auto) Abs Immat Gran (auto) Absolute Neuts (auto) Absolute Nucleated RBC 0.000 Nucleated RBC % (auto) 0.0 PT INR Sodium 138 Potassium 4.0 Chloride 107 Carbon Dioxide 19 L Anion Gap 16 BUN 26 H Creatinine 1.00 Estim Creat Clear Calc 56.5 Estimated GFR > 60 POC Glucose 167 H Random Glucose 177 H Fasting Glucose Calcium 8.5 D Magnesium 2.1 Total Bilirubin AST ALT Alkaline Phosphatase Troponin I High Sens B-Natriuretic Peptide Total Protein Albumin Lipase Urine Color Urine Appearance Urine pH Ur Specific [place] Urine Protein Urine Glucose (UA) Urine Ketones Urine Blood Urine Nitrite Ur Leukocyte Esterase Random Vancomycin Influenza Type A (PCR) Influenza Type B (PCR) RSV RNA Qual (PCR) SARS-CoV-2 RNA (RT-PCR) 09/10/24 09/10/24 09/10/24 10:11 11:55 14:06 WBC 7.4 RBC 2.69 L Hgb 9.2 L Hct 25.8 L MCV 95.9 MCH 34.2 H MCHC 35.7 RDW 13.0 Plt Count 166 MPV 8.9 L Immature Gran % (Auto) 0.4 Neut % (Auto) 84.6 H Lymph % (Auto) 7.2 L [place] % (Auto) 5.7 Eos % (Auto) 1.4 Baso % (Auto) 0.7 Lymph # (Auto) 0.5 L [place] # (Auto) 0.4 Eos # (Auto) 0.1 Baso # (Auto) 0.1 Abs Immat Gran (auto) 0.03 Absolute Neuts (auto) 6.3 Absolute Nucleated RBC 0.000 Nucleated RBC % (auto) 0.0 PT INR Sodium Potassium Chloride Carbon Dioxide Anion Gap BUN Creatinine Estim Creat Clear Calc Estimated GFR POC Glucose 213 H Random Glucose Fasting Glucose Calcium Magnesium Total Bilirubin AST ALT Alkaline Phosphatase Troponin I High Sens 3.9 B-Natriuretic Peptide Total Protein Albumin Lipase Urine Color Urine Appearance Urine pH Ur Specific [place] Urine Protein Urine Glucose (UA) Urine Ketones Urine Blood Urine Nitrite Ur Leukocyte Esterase Random Vancomycin Influenza Type A (PCR) Influenza Type B (PCR) RSV RNA Qual (PCR) SARS-CoV-2 RNA (RT-PCR) 09/10/24 09/10/24 09/11/24 17:31 22:52 05:14 WBC RBC Hgb Hct MCV MCH MCHC RDW Plt Count MPV Immature Gran % (Auto) Neut % (Auto) Lymph % (Auto) [place] % (Auto) Eos % (Auto) Baso % (Auto) Lymph # (Auto) [place] # (Auto) Eos # (Auto) Baso # (Auto) Abs Immat Gran (auto) Absolute Neuts (auto) Absolute Nucleated RBC Nucleated RBC % (auto) PT INR Sodium Potassium Chloride Carbon Dioxide Anion Gap BUN Creatinine Estim Creat Clear Calc Estimated GFR POC Glucose 236 H 200 H 168 H Random Glucose Fasting Glucose Calcium Magnesium Total Bilirubin AST ALT Alkaline Phosphatase Troponin I High Sens B-Natriuretic Peptide Total Protein Albumin Lipase Urine Color Urine Appearance Urine pH Ur Specific [place] Urine Protein Urine Glucose (UA) Urine Ketones Urine Blood Urine Nitrite Ur Leukocyte Esterase Random Vancomycin Influenza Type A (PCR) Influenza Type B (PCR) RSV RNA Qual (PCR) SARS-CoV-2 RNA (RT-PCR) 09/11/24 09/11/24 09/11/24 05:43 09:20 11:15 WBC 4.7 L RBC 2.38 L Hgb 7.8 L Hct 22.8 L MCV 95.8 MCH 32.8 MCHC 34.2 RDW 13.1 Plt Count 163 MPV 9.2 L Immature Gran % (Auto) Neut % (Auto) Lymph % (Auto) [place] % (Auto) Eos % (Auto) Baso % (Auto) Lymph # (Auto) [place] # (Auto) Eos # (Auto) Baso # (Auto) Abs Immat Gran (auto) Absolute Neuts (auto) Absolute Nucleated RBC 0.000 Nucleated RBC % (auto) 0.0 PT INR Sodium 140 Potassium 3.7 Chloride 108 Carbon Dioxide 27 Anion Gap 9 L BUN 13 Creatinine 0.89 Estim Creat Clear Calc 63.5 Estimated GFR > 60 POC Glucose 189 H Random Glucose Fasting Glucose 177 H Calcium 8.2 L Magnesium Total Bilirubin AST ALT Alkaline Phosphatase Troponin I High Sens B-Natriuretic Peptide Total Protein Albumin Lipase Urine Color Urine Appearance Urine pH Ur Specific [place] Urine Protein Urine Glucose (UA) Urine Ketones Urine Blood Urine Nitrite Ur Leukocyte Esterase Random Vancomycin 11.5 L Influenza Type A (PCR) Influenza Type B (PCR) RSV RNA Qual (PCR) SARS-CoV-2 RNA (RT-PCR) Airway Mallampati Class: II TM Dist: >3cm Neck ROM: Full Loose/Missing/Broken Teeth: Yes (Many missing. Many broken. Denies loose teeth) Heart: RRR Lungs: CTAB Assessment and Plan Assessment Anesthesia Assessment: Anesthesia Plan Discussed and Chart Reviewed Final Anesthetic Review Family History of Problems with Anesthesia: No History of Problems with Anesthesia: No NPO: Yes ASA Class: III and Emergency Final Preanesthetic Review: No Changes in Pt Med Stat, Meds/Allgs Chart Reviewed, Consent Obtained/Reviewed and Anes Risks/Benef Reviewed Patient Risk: High Procedure Risk: Intermediate Assessment/Block/Sedation in SS: Assess/Block/Sedation-SS Anesthetic Plan Anesthetic Plan: GA and TIVA Disposition: Standard PACU and Inp. Admit - Standard Bed
[2024-09-11 16:20] LABS: Glucose, Whole Blood 171 mg/dL (60-115)
[2024-09-11] MEDS: Lactated Ringers 1,000 ML 100 ML IVCONT (16:23)
--- NOTE | 2024-09-11 17:03 | P.EN_ITS ---
Event Note Date of Service: 09/11/24 Event Note: GI-EGD-Full note dictated Findings: 1. Mild erosive antral gastritis-biopsied x 3 2. Hiatal hernia No ulcer, no bleeding, no old blood Rec: Advance diet. 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 1 unit PRBC transfusion given his age and comorbidities. Avoid NSAIDs [facility]. Hold aspirin for 1 week and resume if needed for his prior CAD history. Will consider an outpatient colonoscopy if he is agreeable, although this seemed to be quite c/w an UGI bleed. I don't think he is up to a bowel prep right now due to his cellulitis, anemia, and age. D/W his granddaughter and HCP, Kami. Time Spent With Patient Time: Total time managing care of this patient today ____ minutes.
[2024-09-11 17:45] LABS: Glucose, Whole Blood 179 mg/dL (60-115)
[2024-09-11] MEDS: Insulin Lispro 100 UNIT/ML 3 ML VIAL SUBCUT ×2 (18:48)
--- NOTE | 2024-09-11 19:33 | P.BOP_ITS ---
Brief Operative Note Date of Service: 09/11/24 Pre-op diagnosis: UGI Bleed Post-op diagnosis: other (Erosive gastritis, Hiatal hernia) Procedure: EGD with biopsies Surgeon: Angel Rubio MD Anesthesia: MAC Was an Senior Solutions Engineer used for this Procedure?: No Estimated blood loss (mL): 2.0 Pathology: other (A. Gastric antrum) Condition: stable Disposition: PACU
[2024-09-11] MEDS: Atorvastatin Calcium 40 MG TABLET PO (20:28)
[2024-09-12] VITALS (11 sets, daily range): BP systolic 110–144; BP diastolic 55–67; PULSE 71–91; RESP 17–20; TEMP 36.2–37.2; O2SAT 96–98
[2024-09-12 00:53] LABS: Glucose, Whole Blood 178 mg/dL (60-115)
[2024-09-12] MEDS: 0.9 % Sodium Chloride Flush 3 ML SYRINGE IVFLUSH ×2 (01:17→07:50)
--- NOTE | 2024-09-12 04:53 | OP_ITS ---
DATE OF SERVICE: 09/11/2024 SURGEON: Angel Rubio MD INDICATIONS: The patient presents for evaluation of melena and anemia. Full consent has been obtained for this, including risks of bleeding and perforation. PREOPERATIVE DIAGNOSIS: POSTOPERATIVE DIAGNOSIS: PROCEDURE PERFORMED: Esophagogastroduodenoscopy with biopsies. ESTIMATED BLOOD LOSS: COMPLICATIONS: ANESTHESIA: Monitored anesthesia care. ASSISTANTS: SPECIMENS: PREOPERATIVE DIAGNOSES: Melena and anemia. POSTOPERATIVE DIAGNOSES: Melena ane anemia, erosive gastritis, hiatal hernia. DESCRIPTION OF PROCEDURE: The patient was placed in the left lateral decubitus position. The Olympus video gastroscope was passed in the posterior oropharynx and upper esophagus under direct vision. The scope was passed slowly in to the distal esophagus. The gastroesophageal junction appeared normal at 36 cm. There was no sign of any esophagitis. There was a small hiatal hernia. The scope was advanced to the pylorus, and the duodenum was cannulated to the descending portion. The duodenum including the bulb appeared normal without mass or ulceration. There was no blood in the duodenum. The scope was withdrawn back in the stomach. The gastric antrum had some changes of erosive gastritis, but this was not particularly significant and there was no sign of any bleeding. There was good peristalsis. There was no sign of any ulceration or mass. Biopsies were obtained from the antrum. The scope was retroflexed visualizing the proximal stomach carefully, which appeared normal, without any sign of mass or ulceration. The scope was straightened and withdrawn back to the esophagus. The esophageal mucosa appeared normal. The scope was withdrawn from the patient. He tolerated the procedure well and was returned to the recovery area in stable condition. IMPRESSION: 1. Mild erosive antral gastritis. 2. Hiatal hernia. PLAN: At this point, the patient has been stable. His diet will be advanced. He will be switched to an oral PPI, and I would recommend he continue that long-term. I would recommend another unit of blood transfusion given his age and comorbidities. He should avoid NSAIDs long-term. I would try to hold the aspirin for a week or so, but resume that if needed for his prior coronary artery disease. His clinical history was quite consistent with an upper GI bleed, although the upper endoscopy was not particularly revealing. One could make a case to have him undergo an outpatient colonoscopy if he is agreeable, although given his age and comorbidities that may be difficult for him. I do not think he is up to having that does as an inpatient in regard to having a bowel prep due to some ongoing treatment for his cellulitis, his anemia, and his age. This has been discussed with his granddaughter and healthcare proxy, Kami. This has been discussed with him as well. MD STEVE Blackwell/UOG / [phone] MTDD
[2024-09-12 05:44] LABS: Glucose, Whole Blood 203 mg/dL (60-115)
[2024-09-12] MEDS: Omeprazole 20 MG CAPSULE.DR PO (05:46)
[2024-09-12] MEDS: Metoprolol Succinate ER 12.5 MG HALFTAB.ER.24H PO (07:50)
--- NOTE | 2024-09-12 09:42 | HO.POSTANES ---
Post Anesthesia Evaluation Post Anesthesia Evaluation Date of Service: 09/11/24 Vital Signs: Vital Signs Temp Pulse Resp BP Pulse Ox O2 Del Method 09/12/24 08:00 98.4 F 77 20 110/56 L 97 Room Air 09/12/24 07:50 83 144/67 H 09/12/24 04:00 97.7 F 83 20 144/67 H 96 Room Air 09/12/24 00:00 98.9 F 89 20 114/55 L 98 Room Air Anesthesia: Monitored Mental Status: Awake Pain Control: Satisfactory Nausea/Vomiting: None Hydration: Adequate Anesthesia-Related Issues: No Anes. Related Issues
[2024-09-12 10:16] LABS: Hematocrit 23.5 % (42.0-52.0); Hemoglobin 8.4 g/dl (14.0-18.0); Mean Corpuscular HGB Conc 35.7 g/dl (31.0-36.0); Mean Corpuscular Hemoglobin 34.4 pg (27.0-33.0); Mean Corpuscular Volume 96.3 fL (80.0-98.0); Mean Platelet Volume 9.4 fL (9.4-12.4); NRBC Pct Auto 0.9 /100WBC (0.0-0.2); Platelet Count 176 X10*3/uL (160-400); Red Blood Count 2.44 X10*6/uL (4.60-5.80); Red Cell Distribution Width 12.9 % (11.0-16.0); White Blood Count 6.6 X10*3/uL (4.8-10.8)
[2024-09-12 10:33] LABS: Anion Gap 12 (12-20); Blood Urea Nitrogen 11 mg/dL (9-16); Carbon Dioxide 25 mmol/L (22-29); Chloride 107 mmol/L (96-108); Creatinine Clr Calc Pharmacy 58.9; Estimated Glomerular Filt Rate > 60; Glucose Fasting 245 mg/dL (60-99); Sodium 140 mmol/L (135-145)
[2024-09-12 10:34] LABS: Vancomycin Random 12.3 mcg/mL (15-20)
[2024-09-12 10:43] LABS: Glucose, Whole Blood 224 mg/dL (60-115)
[2024-09-12] MEDS: Insulin Lispro 100 UNIT/ML 3 ML VIAL SUBCUT (10:46)
[2024-09-12] MEDS: vancomycin HCL 1,000 MG in 0.9 % Sodium Chloride 250 ML 270 MG IV (13:29)
[2024-09-12] MEDS: Ammonium Lactate 12 % Lotion 226 GM BOTTLE 1 APPL TOPICAL (13:29)
--- NOTE | 2024-09-12 15:13 | PM.DS ---
DS: Providers Provider Date of Service: 09/12/24 Date of admission: 09/09/24 22:10 Date of discharge: 09/12/24 Primary care physician: Sundar Tran MD Consults: 09/09/24 22:58 Consult to Gastroenterology Routine Consulting Provider: Angel Rubio Reason for consultation: GI bleed DS: Diagnosis Discharge Diagnosis (1) GI bleed: Status: Acute (2) Cellulitis, leg: Status: Acute (3) Acute blood loss anemia: Status: Acute DS: Summary Hospital Course Hospital Course: Admission note HPI This is a 84-year-old male with pertinent history of hypertension, lower extremity leg edema, [id number] diabetes mellitus, mixed hyperlipidemia, coronary artery disease who presents to the emergency department for evaluation of dark stools. Patient states his symptoms started 2 days prior to presentation. He has been having multiple episodes of black stools. Denies abdominal pain, fever or chills. No nausea or vomiting. No history of similar complaints in the past. Has not ever had a colonoscopy in the past. Does take Aleve once every 2 weeks 4 right shoulder pain. Did not take NSAIDs in the last 1 month. No chest pain, palpitations, shortness of breath, abdominal pain, changes in urinary or bowel habits. Recently completed p.o. doxycycline for concerns of right lower extremity cellulitis but states the redness and warmth persist. In the emergency department, hemoglobin dropped to 9.7 and patient was initiated on IV Protonix. Hospital course The patient was admitted and treated for Acute blood loss anemia secondary to gastrointestinal bleeding. He was treated with IV Protonix as his Hemoglobin dropped to 7.8 requiring 1 unit of blood transfusion. Evaluated by gastroentrologist Dr Rubio who reported erosive gastritis recommending Holding aspirin for 1 week and starting Omeprazole. He will need to follow up as outpatient for colonoscopy. He was treated for Right lower extremity cellulitis with IV vancomycin with good response over the course of hospital stay as erythema and tenderness significantly decreased. To be discharged on 5 more days of Doxycline PO and advised to keep his skin moist. Evaluated by physical therapy who recommended family services assistant and no need for rehablitation. Discharge plan Hold Aspirin for 1 week Start Omeprazole 20 mg daily Doxycycline for skin infection for 5 more days Use Ammonium lactate lotion to avoid skin dryness Time Attestation Discharge Coordination Time (in mins): 43 Quality: Safe Use of Opioids Does Pt have an Active Cancer Diagnosis on the Problem List?: No Quality: Stroke Does the patient have a stroke diagnosis?: No Physical Exam Vital Signs: Vital Signs: Last Vital Signs Temp 97.7 F 09/12/24 13:54 Pulse 71 09/12/24 13:54 Resp 18 09/12/24 13:54 BP 115/58 L 09/12/24 13:54 Pulse Ox 96 09/12/24 11:47 O2 Del Method Room Air 09/12/24 11:47 BMI result Body Mass Index 30.9 Const: Other: Constitutional : Awake, interactive, not in distress Neck : Normal inspection, Supple Cardiovascular : RRR, no JVP, no lower extremity edema Respiratory : good bilateral air entry, no crackles, wheezes or rhonchi Gastrointestinal: soft, lax, Normal bowel sounds, Non tender Skin : Warm, Dry, RLE mild erythema with no tenderness or warmth Neurological : Alert & oriented x3, No focal deficit DS: Data Data Completed and Pending Pending studies at discharge: Pending at discharge 09/11/24 16:53 Surgical [PTH] Routine Labs on day of discharge: Laboratory Results - last 24 hr 09/11/24 09/11/24 09/11/24 15:44 16:09 17:40 WBC RBC Hgb Hct MCV MCH MCHC RDW Plt Count MPV Absolute Nucleated RBC Nucleated RBC % (auto) Sodium Potassium Chloride Carbon Dioxide Anion Gap BUN Creatinine Estim Creat Clear Calc Estimated GFR POC Glucose 171 H 179 H Fasting Glucose Calcium Random Vancomycin Blood Type B Positive Antibody Screen NEGATIVE Crossmatch See Detail 09/12/24 09/12/24 09/12/24 00:47 05:40 09:09 WBC 6.6 RBC 2.44 L Hgb 8.4 L Hct 23.5 L MCV 96.3 MCH 34.4 H MCHC 35.7 RDW 12.9 Plt Count 176 MPV 9.4 Absolute Nucleated RBC 0.060 H Nucleated RBC % (auto) 0.9 H Sodium 140 Potassium 4.0 Chloride 107 Carbon Dioxide 25 Anion Gap 12 BUN 11 Creatinine 0.96 Estim Creat Clear Calc 58.9 Estimated GFR > 60 POC Glucose 178 H 203 H Fasting Glucose 245 H Calcium 8.0 L Random Vancomycin 12.3 L Blood Type Antibody Screen Crossmatch 09/12/24 10:39 WBC RBC Hgb Hct MCV MCH MCHC RDW Plt Count MPV Absolute Nucleated RBC Nucleated RBC % (auto) Sodium Potassium Chloride Carbon Dioxide Anion Gap BUN Creatinine Estim Creat Clear Calc Estimated GFR POC Glucose 224 H Fasting Glucose Calcium Random Vancomycin Blood Type Antibody Screen Crossmatch Imaging Chest x-ray: Radiologist's impression: ITS Impressions Chest X-Ray 09/09/24 16:25 IMPRESSION: Unremarkable examination. Electronically signed by: Gary Vang MD 09/09/2024 05:26 PM EDT RP Abdomen/Pelvis CT 09/09/24 19:43 IMPRESSION: 1. No evidence of active GI bleeding. 2. Colonic diverticulosis without diverticulitis. 3. Cholelithiasis without cholecystitis. Electronically signed by: Gary Vang MD 09/09/2024 09:34 PM EDT RP Discharge Plan Discharge Anticipated Discharge Date/Time: 09/12/24 15:09 Patient Disposition: Home, Self-Care Discharge Diagnosis: GI bleed Cellulitis Referrals: Sundar Tran MD [Primary Care Provider] - 1 Week Discharge Medications: New ammonium lactate 12 % Lotion 1 appl topical BID Qty: 400 1RF Protocol: Apply to: Apply to: lower extremities omeprazole 20 mg Capsule,Delayed Release(Dr/Ec) 20 mg PO DAILY@0630 Qty: 90 0RF doxycycline monohydrate 100 mg capsule 100 mg PO BID Qty: 10 0RF Continued furosemide 40 mg tablet 40 mg PO DAILY metformin 500 mg tablet 500 mg PO BEDTIME metformin 500 mg tablet 1,000 mg PO DAILY@0800 metoprolol succinate 25 mg tablet extended release 24 hr 12.5 mg PO BID rosuvastatin 10 mg tablet 10 mg PO BEDTIME Held aspirin 81 mg Tablet,Delayed Release (Dr/Ec) 81 mg PO DAILY Hold Instructions: Resume on 09/19/24. Discharge Orders: Discharge Order (Routine); Ordered 09/12/24 Ordered By: Sebas Rinaldi Diet: Advance to usual diet Activity on Discharge: As tolerated Stand Alone Forms: Patient Portal Discharge page Print Language: Serbian Other Ambulatory Orders: Complete Blood Count Auto Diff (Routine) Timeframe: 1 Week Facility: [facility] - Location: Laboratory Ordered By: Sebas Rinaldi Care Plan Goals: Hold Aspirin for 1 week Start Omeprazole 20 mg daily Doxycycline for skin infection for 5 more days Use Ammonium lactate lotion to avoid skin dryness To follow up with dr Rubio as outpatient for planning Colonoscopy recheck blood test next week Health Concerns: Right lower extremity cellulitis Erosive gastritis Plan of Treatment: Antibiotics Hold Aspirin Omeprazole Assessment: As above
--- NOTE | 2024-09-12 15:30 | MHC.CM.PN ---
Pt has been medically cleared for DC, he will go home via family transport, plan is self care.
== END 2024-09-12 16:24 | disposition home or self-care (01) | DRG 378 ==
LOC: HO.ED 21:57 → HO.EDOVER 22:23 → HO.IMC 22:37
PROVIDERS: Internal Medicine; Physician Assistant Medical; Admitting Provider Student in an Organized Health Care Education/Training Program; Emergency Provider Emergency Medicine; PCP Internal Medicine; Visit Provider Student in an Organized Health Care Education/Training Program
PROC: 0DJ08ZZ Inspection of Upper Intestinal Tract, Via Natural or Artificial Opening Endoscopic (ICD-10-PCS; CPT 43235; principal; 2024-09-11 16:50)
DX: K29.61 Other gastritis with bleeding (principal); D62 Acute posthemorrhagic anemia; L03.115 Cellulitis of right lower limb; K44.9 Diaphragmatic hernia without obstruction or gangrene; I87.321 Chronic venous hypertension (idiopathic) with inflammation of right lower extremity; E11.9 Type 2 diabetes mellitus without complications; I25.10 Atherosclerotic heart disease of native coronary artery without angina pectoris; I10 Essential (primary) hypertension; E78.2 Mixed hyperlipidemia; Z20.822 Contact with and (suspected) exposure to COVID-19; Z79.82 Long term (current) use of aspirin; Z79.84 Long term (current) use of oral hypoglycemic drugs; Z79.899 Other long term (current) drug therapy
CPT/HCPCS: 0241U; 36415; 71046; 74178; 80048; 80053; 80202; 81003; 82947; 83690; 83735; 83880; 84484; 85025; 85027; 85610; 86850; 86900; 86901; 86923; 88305; 88313; 88342; 93005; 97161; 99285; J2003; J2470; J2704; J3370; J3475; J7120; P9016; Q9967

== ENCOUNTER → 2024-09-09 16:01 | Outpatient (BNV) | payer MEDICARE, SELFPAY | PROVIDERS: Admitting Provider Student in an Organized Health Care Education/Training Program; Emergency Provider Emergency Medicine; PCP Internal Medicine; Visit Provider Internal Medicine Cardiovascular Disease | DX: R06.02 Shortness of breath (principal); R94.31 Abnormal electrocardiogram [ECG] [EKG] | CPT/HCPCS: 93010 ==

== ENCOUNTER → 2024-09-09 22:10 | Outpatient (BNV) | payer MEDICARE, SELFPAY | PROVIDERS: Admitting Provider Student in an Organized Health Care Education/Training Program; Emergency Provider Emergency Medicine; PCP Internal Medicine; Visit Provider Student in an Organized Health Care Education/Training Program | DX: K92.2 Gastrointestinal hemorrhage, unspecified (principal); L03.115 Cellulitis of right lower limb; D62 Acute posthemorrhagic anemia | CPT/HCPCS: 99223; 99232; 99239 ==